=== PATIENT | female | born 1955 | race Caucasian/White ===

== ENCOUNTER → 2020-08-27 08:14 | Outpatient (CLI) | payer OTHER, SELFPAY ==
--- NOTE | ~2020-08-27 | MM_ITS ---
EXAMINATION: MM screening [facility] BI w poppy HISTORY: Screening mammogram TECHNIQUE: Craniocaudal and mediolateral oblique 3-D tomosynthesis images were obtained and synthetic 2-D images were generated. CAD analysis was submitted and interpreted. COMPARISON: 12/06/2018, 06/08/2017, 02/25/2016 bilateral digital screening mammogram examinations BREAST PARENCHYMAL COMPOSITION: The breasts are heterogeneously dense, which may obscure small masses . FINDINGS: There is no evidence of suspicious mass, calcification, or architectural distortion to sugg est malignancy in either breast. There has been no suspicious interval change. IMPRESSION: 1. No mammographic evidence of malignancy. 2. Recommend routine screening mammography in one year. BI-RADS Category 1: Negative Reviewed, dictated and finalized at location A. T SCIENTIST
== END ==
PROVIDERS: Visit Provider Nurse Practitioner Obstetrics & Gynecology
DX: Z12.31 Encounter for screening mammogram for malignant neoplasm of breast (principal)
CPT/HCPCS: 77063; 77067

== ENCOUNTER 2021-06-12 09:44 | Outpatient (CLI) | payer OTHER, SELFPAY ==
[2021-06-12 11:27] LABS: INR 0.9; Partial Thromboplastin Time 26.7 SECONDS (22.3-36.8); Prothrombin Time 11.9 Seconds (11.1-14.7)
[2021-06-12 11:41] LABS: Add Urine Microscopic? YES; Appearance Urine Clear (Clear); Bilirubin Urine Negative (Negative); Blood Urine 1+ (Negative); Color Urine Straw (Yellow); Glucose Urine UA Negative (Negative); Ketones Urine Negative (Negative); Leukocyte Esterase Ur Negative LEU/UL (Negative); Mucus Urine Rare /lpf; Nitrate Urine Negative (Negative); Protein Urine Negative (Negative); RBC Urine 0-2 /hpf (0-2); Specific Grav Ur 1.014 (1.001-1.035); Squamous Epithelial Cell Urine Rare /hpf (Few); Urobilinogen Urine Negative mg/dL (<2.0); WBC Urine 0-3 /hpf
[2021-06-12 12:09] LABS: Hemoglobin A1C 5.3 % (<5.7)
[2021-06-12 12:29] LABS: Urine Cotinine NEGATIVE
== END 2021-06-12 09:45 | disposition home or self-care (01) ==
LOC: ANHSURGERY 09:51
PROVIDERS: PCP Registered Nurse; Visit Provider Orthopaedic Surgery
DX: M17.11 Unilateral primary osteoarthritis, right knee (principal); Z01.818 Encounter for other preprocedural examination
CPT/HCPCS: 80307; 81001; 83036; 85610; 85730; 86850; 86900; 86901; 87081

== ENCOUNTER 2021-06-21 00:25 | Day surgery (SDC) | payer OTHER, SELFPAY ==
[2021-06-12 09:58] VITALS: BMI 38.1
--- NOTE | 2021-06-12 10:30 | PC.NURSE ---
Report to the Outpatient Waiting Room, entrance under the green pavilion located off [facility], at time __0600 on date _06/21/21 . OR Time: . - You and your visitor will be asked a series of questions to screen for COVID 19 for your protection. - A mask is required within the hospital. - Only one visitor is allowed at this time. Patient visitors will be guided where to wait when not with patient. Preoperative COVID Testing Requirements: No COVID Test needed if: (proof is required; if not received patient will have Rapid Test prior to entry) - Patient has received COVID Vaccine at least 14 days prior to procedure date or - Patient has positive COVID test result within last 90 days of surgery date. COVID Test needed if above criteria is not met If not COVID vaccinated a COVID test must be conducted within 72 hours of surgery and patient is asked to isolate self from time of testing until procedure. You will go to the [facility] for your COVID testing. The [facility] is located at the corner of [address] [facility]. You will only be called if COVID results are positive and your surgeon may reschedule your elective surgery date. Patients may have clear liquids (water, carbonated beverages, clear teas, apple juice) until 3 hours prior to surgery with a maximum of 20 ounces. - No food from midnight until time of surgery - Infants may have breast milk until 4 hours before surgery, infant formula 6 hours prior to surgery. - Children will be allowed to drink immediately following surgery. If applicable, please bring a bottle or sippy cup to assist with drinking. Juice, water, soda, and popsicles are readily available. For infants on formula, please bring formula the day of surgery. Pacifiers are allowed. Take the following medications with a SIP of water the morning of surgery: AMLODIPINE,LEVOTHYROXINE Medications to discontinue per physician ____ALL VITAMINS AND SUPPLEMENTS Date to take last dose 06/18/21 Please no make-up, nail german, hairspray, perfume, deodorant, or body powder the day of surgery. No jewelry (including any body piercings) or valuables the day of surgery, leave them at home. Please take a shower or bath the night before, or the morning of, surgery with an antibacterial soap. Wear comfortable, loose fitting clothing. Children are encouraged to wear pajamas. - Jewelry must be removed prior to entering the operating room. Rings and piercings that are not removed may be cut off. - The hospital will not accept responsibility for valuables. - Please leave all valuables, including medications, at home the day of surgery. If you are going home after surgery, a licensed team cdl driver must drive you home. - NO public transportation without another adult. - We recommend that an adult stay with you for 24 hours following discharge. - We also recommend that you do not drive, make important decision, drink alcoholic beverages, or take any drugs that were not prescribed by your health care provider for at least 24 hours after your discharge time. For Pediatric surgeries, we recommend two adults accompany the child home (only one inside the building at this time). Follow any additional instructions given to you from your surgeon. Telephone instructions given to ____PATIENT and asked if any additional questions and then verbalized understanding. Patient advised to call surgeon office or pre surgery nurse liaison [phone] if any additional questions.
[2021-06-12 10:48] VITALS: BP 133/77; PULSE 65; RESP 16; TEMP 36.7; O2SAT 97
[2021-06-21] VITALS (15 sets, daily range): BP systolic 104–141; BP diastolic 60–78; PULSE 65–79; RESP 10–20; TEMP 36.3–36.9; O2SAT 94–100; BMI 39.2
--- NOTE | ~2021-06-21 | XR_ITS ---
EXAMINATION: XR knee RT 2V DATE: 06/21/2021 10:16 INDICATION: Total right knee arthroplasty. Postop. TECHNIQUE: 2 views of right knee were obtained. COMPARISON: Right knee radiographs 03/16/2021 FINDINGS: There is a total right knee arthroplasty without patellar resurfacing in near-anatomic alig nment. No fracture. There is gas in the knee joint and soft tissues, consistent with recent surgery. IMPRESSION: 1. Total right knee arthroplasty in near-anatomic alignment. Reviewed, dictated and finalized at location A. BULANCE DISPATCHER
[2021-06-21] MEDS: ACETAMINOPHEN 500 MG TABLET 1000 MG PO (06:12)
[2021-06-21] MEDS: LACTATED RINGERS 1,000 ML 30 ML IV CONT ×2 (06:30→10:06)
--- NOTE | 2021-06-21 06:55 | WPDANESEPPF ---
Anes - Initial Pre Proc Eval Procedure: Operation Date: 06/21/21 07:30 Proposed Procedures p Right Total Knee Arthroplasty - Serafin Sullivan MD Date/Time: 06/21/21 06:55 Surgeon: Serafin Sullivan MD Pre Op Diagnosis: right knee DJD Patient Data Age: 65 Gender: F Height: 1.65 m Weight: 104.4 kg Last Vital Signs Temp 36.7 C 06/21/21 06:21 Pulse 75 06/21/21 06:21 Resp 16 06/21/21 06:21 BP 141/78 H 06/21/21 06:21 Pulse Ox 97 06/21/21 06:21 Allergies Allergy/AdvReac Type Severity Reaction Status Date / Time Sulfa (Sulfonamide Allergy Unknown Chest Pain Verified 06/21/21 06:08 Antibiotics) Home Medications Medication Instructions Recorded Confirmed Type amlodipine 5 mg tablet 5 mg PO DAILY 12/08/20 06/21/21 History atorvastatin 20 mg tablet 20 mg PO DAILY 12/08/20 06/21/21 History famotidine 20 mg tablet 20 mg PO BID 12/08/20 06/21/21 History levothyroxine 50 mcg capsule 50 mcg PO DAILY 12/08/20 06/21/21 History spironolactone 50 mg tablet 50 mg PO DAILY 12/08/20 06/21/21 History ascorbate calcium (vitamin C) 500 mg PO BID 12/09/20 06/21/21 History cholecalciferol (vitamin D3) 50 mg PO DAILY 12/09/20 06/21/21 History cinnamon bark 500 mg PO DAILY 12/09/20 06/21/21 History multivitamin 1 tablet PO DAILY 12/09/20 06/21/21 History chlorhexidine gluconate 4 % 1 applic TOPICAL ONCE #237 ml 03/21/21 06/12/21 Rx topical liquid calcium carbonate-vitamin D3 1 tablet PO DAILY 06/12/21 06/21/21 History [Calcium 500 + D (D3)] olmesartan 40 1 tablet PO DAILY 06/12/21 06/21/21 History mg-hydrochlorothiazide 25 mg tablet potassium 297 mg PO DAILY 06/12/21 06/21/21 History Patient hx anesthesia problems: none Family hx anesthesia problems: none Results Review: All pre-operative results and documents have been reviewed as part of the pre-operative evaluation. PMFSH Past Medical History Medical History (Updated 06/21/21 @ 06:57 by Jori David MD) HTN (hypertension) Hyperlipidemia Hypothyroidism Knee effusion, right Left shoulder pain Medial meniscus tear Obesity Right knee DJD Right knee pain Vision abnormalities Wears glasses Surgical History Surgical History History of section complicating 3 History of laparoscopic cholecystectomy Family History Family History Father Family history of Parkinson's disease Family history of heart disease in male family member before age 55 Mother Family history of lupus erythematosus Family history of heart disease in male family member before age 55 Acute myocardial infarction Sibling Family history of diabetes mellitus in first degree relative Other Cerebrovascular accident Diabetes mellitus Family history of cardiovascular disease Family history of gout Family history of malignant neoplasm High cholesterol Hypertension Leukemia Social History Social History (Updated 06/12/21 @ 09:11 by Mariana Lantigua MA) Smoking status: Never smoker Additional smoking assessment comments: DENIES ANY FORM OF TOBACCO USE Alcohol intake: never Substance use: never Substance use type: does not use Living arrangements: with family Gender identity (if verbalized by the patient): Female Spiritual care concerns: No Anes - Eval Final PreProcedure Day of Procedure 06/21/21 06:55 Patient weight: obese Heart: regular rate and rhythm Lungs: clear to auscultation and normal air movement Airway: Mallampati scale class II Neurological: alert and oriented Last oral intake: >/= 8 hours ASA classification: III Emergent: no Anesthetic plan: proceed Anesthesia type and monitoring: general LMA Results Review: All pre-operative results and documents have been reviewed as part of the pre-operative evaluation. Informed Consent: The patient's anesthetic plan and its attendant risks
[2021-06-21] MEDS: TRANEXAMIC ACID 1,000MG/ISO100 1,000 MG/100 ML BAG 200 MG IVPB (07:00)
--- NOTE | 2021-06-21 07:15 | WPDHPUPDATE1 ---
History and Physical Update Update Date/Time: 06/21/21 07:15 History and Physical has been reviewed, including an updated exam of the patient. There are NO changes in the patient's condition. Risks, benefits, and alternatives have been discussed and questions answered. Patient agrees to proceed with procedure.
[2021-06-21] MEDS: ceFAZolin 2 GM/D5W 50 ML 2 GM/50 ML BAG IVPB ×2 (07:41→16:06)
--- NOTE | 2021-06-21 07:44 | WPDANESPNB ---
Anes - Peripheral Nerve Block Date/Time: 06/21/21 07:44 I have discussed with the patient/family/POA the placement of a peripheral nerve block for post-operative pain management, including associated risks, benefits, complications, and side effects. Alternative methods of post-operative analgesia were detailed. Questions were solicited and answers provided to the satisfaction of the patient/family/POA. Time-Out: A pre-procedural Time-Out was completed immediately before starting the procedure and confirmed: Patient Identification, Site, Procedure, Patient Position and the Availability of Requisite Equipment. Clinical Indications: Acute post-operative pain management requested by the operative surgeon. Nerve Block Insertion Note Anes-nerve block: adductor canal right Patient position: supine Skin prep: chlorhexidine Needle: 22 gauge, stimulating, insulated echogenic needle. Needle length: 80 mm Technique: ultrasound Technique comment: in plane Injectate: bupivacaine 0.25% with epi 5 mcg/ml (30cc) Observations: tolerated well Complications: none Procedure start time:: 730 Procedure end time:: 735
[2021-06-21] MEDS: GENTAMICIN BONE CEMENT REFOBACIN 1 EACH TOPICAL (08:21)
[2021-06-21] MEDS: TRANEXAMIC ACID 1,000 MG/10 ML AMPUL 1000 MG IV PUSH (09:08)
--- NOTE | 2021-06-21 10:13 | P.OP_ITS ---
Procedure Note - Detailed Date of Procedure 06/21/21 Pre-op Diagnosis right knee DJD Post-op Diagnosis same Procedure Performed R TKA Surgeon Serafin Sullivan MD Anesthesia general Description of Procedure THE RIGHT KNEE WAS PREPPED AND DRAPED IN THE STERILE FASHION. THERE WAS A 10 DEGREE FLEXION CONTRACTURE. A MIDLINE SKIN INCISION WAS MADE. A MEDIAL PARAPATELLAR ARTHROTOMY WAS MADE. THE PATELLA WAS EVERTED. THERE WAS TRICOMPARTMENT DJD. THERE WAS MINIMAL PATELLA DJD. AN INTRAMEDULLARY AMIRA WAS PLACED IN THE FEMUR. A DISTAL FEMORAL CUT WAS MADE IN 5 DEGREES OF VALGUS REMOVING APPROXIMATELY 9 MM OF BONE FROM THE DISTAL FEMUR. THE FEMUR WAS SIZED TO 65. A 65 FEMORAL CUTTING BLOCK WAS PLACED IN 3 DEGREES OF EXTERNAL ROTATION AND IN ALIGNMENT WITH CAMILA'S LINE AND THE TRANSEPICONDYLAR AXIS. ANTERIOR POSTERIOR AND CHAMFER CUTS WERE MADE. THE CUTS WERE EXCELLENT. NEXT AN INTRAMEDULLARY CUTTING GUIDE WAS PLACED IN THE TIBIA. A TRANS TIBIAL CUT WAS MADE ALONG THE LONG AXIS OF THE TIBIA. APPROXIMATELY 10 MM OF BONE WAS REMOVED FROM THE HIGH SIDE OF THE TIBIA. THE TIBIA WAS THEN PLANED TO A SMOOTH SURFACE. POSTERIOR FEMORAL OSTEOPHYTES WERE REMOVED FROM THE FEMORAL CONDYLES. A 71 TIBIAL TRIAL WAS PLACED IN ALIGNMENT WITH THE 1/3 MEDIAL ASPECT OF THE TIBIAL TUBERCLE. THEN A 65 FEMORAL TRIAL COMPONENT WAS PLACED. BOTH HAD EXCELLENT FITS. EVENTUALLY A 10 MM POLYETHYLENE TRIAL COMPONENT WAS PLACED. THE KNEE WAS TAKEN THROUGH A RANGE OF MOTION. THE KNEE CAME OUT TO FULL EXTENSION. THERE WAS NO ABNORMAL TILT TO THE PATELLA. THERE WAS GOOD A/P AND VARUS/VALGUS STABILITY. THERE WAS NO EXCESSIVE ROLL BACK WITH FLEXION. THE TRIAL COMPONENTS WERE REMOVED. THEN A 65 FEMORAL COMPONENT AND 71 TIBIAL COMPONENT WITH A 10 POLYETHYLENE COMPONENT WERE CEMENTED INTO PLACE. ONCE THE CEMENT WAS HARD THE KNEE WAS TAKEN THROUGH A ROM AGAIN AND FOUND TO BE STABLE WITH NO PATELLA TILT NO EXCESSIVE ROLL BACK WITH FLEXION AND GOOD STABILITY WITH COMPLETE AND FULL EXTENSION. THE KNEE WAS IRRIGATED WITH STERILE BETADINE AND WATER FOR ABOUT 3 MINUTES. THE BLEEDERS WERE CAUTERIZED. THE ARTHROTOMY WAS REPAIRED WITH NUMBER 1 VICRYL. THE SUB CUTANEOUS LAYER WITH 2-0 VICRYL AND THE SKIN WITH A 2-0 QUIL AND DERMABOND. THE WOUND WAS WASHED AND A STERILE DRESSING WAS APPLIED. EMILY PIZARRO WAS EXTUBATED. Estimated Blood Loss -150.0 Pathology none sent Complications No immediate complications Condition stable Disposition PACU
[2021-06-21] MEDS: fentaNYL CITRATE INJ (*CRX) 100 MCG/2 ML VIAL 25 MCG IV PUSH ×6 (10:16→10:52)
--- NOTE | 2021-06-21 11:05 | SUR.PHASEI ---
[id number] sbar faxed floor notified
--- NOTE | 2021-06-21 12:10 | ADMGEN ---
This patient, Adina Sidhu, was admitted to 2 Medical Room 242-01. Patient/family oriented to hospital policies and general routines including ID bracelet, bed and alarms, visiting hours, pain management, procedures, bathroom and other care routines, personal items, smoking policy, room service/diet, and visiting hours. Information on how to activate the Rapid Response Team has been discussed. Patient/Family are encouraged to report perceived risks to care and to ask questions if they do not understand what they are told or what they should do.
[2021-06-21] MEDS: oxyCODONE/ACETAMINOPHEN (*CRX) 5-325 MG TABLET 1 TABLET PO ×2 (12:54→20:56)
[2021-06-21] MEDS: SODIUM CHLORIDE 0.9% IV 1,000 ML 125 ML IV CONT (12:54)
[2021-06-21] MEDS: ASCORBIC ACID 500 MG TABLET PO (16:06)
[2021-06-21] MEDS: DOCUSATE SODIUM 100 MG CAPSULE PO (16:06)
[2021-06-21] MEDS: FAMOTIDINE 20 MG TABLET PO (20:56)
[2021-06-22] MEDS: ceFAZolin 2 GM/D5W 50 ML 2 GM/50 ML BAG IVPB ×2 (00:30→09:00)
[2021-06-22 01:26] VITALS: BP 122/66; PULSE 81; RESP 20; TEMP 37.4; O2SAT 98
[2021-06-22 05:26] VITALS: BP 114/59; PULSE 79; RESP 18; TEMP 37.1; O2SAT 97
[2021-06-22] MEDS: LEVOTHYROXINE SODIUM 50 MCG TABLET PO (06:24)
[2021-06-22 06:32] LABS: Basophils Percent Auto 0.1 % (0.2-1.2); Hematocrit 34.8 % (37.0-47.0); Immature Granulocyte Absolute 0.02 K/mm3 (0.00-0.031); Immature Granulocyte Percent A 0.2 % (0-0.5); Lymphocytes Absolute Auto 0.96 K/mm3 (0.9-3.2); Lymphocytes Percent Auto 11.6 % (18.3-44.2); Mean Corpuscular HGB Conc 34.5 g/dl (32-36); Mean Corpuscular Hemoglobin 31.4 pg (26-34); Mean Corpuscular Volume 91.1 fl (80-100); Mean Platelet Volume 10.3 fl (7.4-10.4); Neutrophils Absolute Auto 6.3 K/mm3 (1.3-6.7); Neutrophils Percent Auto 76.1 % (45.5-73.1); Platelet Count Result 177 k/mm3 (150-375); Red Blood Count 3.82 M/mm3 (4.2-5.4); Red Cell Distribution Width 13.3 % (11.5-14.5); White Blood Count 8.3 K/mm3 (4.5-10.0)
[2021-06-22 07:00] LABS: Anion Gap 7 mmol/L (8-16); Blood Urea Nitrogen 17 mg/dL (7-17); Calcium 8.1 mg/dL (8.4-10.2); Carbon Dioxide 27 mmol/L (22-30); Chloride 100 mmol/L (98-107); Estimated CRCL calculation 98 ml/min; Estimated Glomerular Filt Rate > 60; Glucose 119 mg/dL (65-110); Potassium 3.6 mmol/L (3.4-5.0); Sodium 134 mmol/L (137-145)
--- NOTE | 2021-06-22 07:54 | P.PNAN_ITS ---
Anes - Prog Note Post-Op Date/Time: 06/22/21 07:54 Cardiovascular status: normal Respiratory status: normal Airway patency: baseline Mental status: baseline Post-Op hydration status: normal Vital Signs: Last Vital Signs Temp 37.4 C 06/22/21 01:26 Pulse 81 06/22/21 01:26 Resp 20 06/22/21 01:26 BP 122/66 06/22/21 01:26 Pulse Ox 98 06/22/21 01:26 Pain Score (VAS): 4 I/O: Intake & Output 06/21/21 06/21/21 06/22/21 15:59 23:59 07:59 Intake Total 7036 000 3287 Balance 8005 199 7508 Laboratory Tests 06/22/21 05:24 06/22/21 05:24 06/22/21 06/22/21 05:24 05:24 WBC 8.3 RBC 3.82 L Hgb 12.0 Hct 34.8 L MCV 91.1 MCH 31.4 MCHC 34.5 RDW 13.3 Plt Count 177 MPV 10.3 Immature Gran % (Auto) 0.2 Neut % (Auto) 76.1 H Lymph % (Auto) 11.6 L [place] % (Auto) 12.0 H Eos % (Auto) 0.0 Baso % (Auto) 0.1 L Lymph # (Auto) 0.96 [place] # (Auto) 1.0 H Eos # (Auto) 0.0 Baso # (Auto) 0.0 Abs Immat Gran (auto) 0.02 Absolute Neuts (auto) 6.3 Absolute Nucleated RBC 0.0 Nucleated RBC % 0.0 Sodium 134 L Potassium 3.6 Chloride 100 Carbon Dioxide 27 Anion Gap 7 L BUN 17 Creatinine 0.60 L Estim Creat Clear Calc 98 Estimated GFR > 60 Glucose 119 H Calcium 8.1 L Post-procedural complaints: none Patient Feedback: Patient satisfied with anesthetic care.
[2021-06-22 08:54] VITALS: BP 132/62; PULSE 77; RESP 16; TEMP 36.3; O2SAT 98
[2021-06-22] MEDS: ASCORBIC ACID 500 MG TABLET PO ×2 (09:00→17:12)
[2021-06-22] MEDS: ONDANSETRON INJ 4 MG/2 ML VIAL IV PUSH (09:00)
[2021-06-22] MEDS: amLODIPine BESYLATE 5 MG TABLET PO (09:00)
[2021-06-22] MEDS: SPIRONOLACTONE 50 MG TABLET PO (09:01)
[2021-06-22] MEDS: FAMOTIDINE 20 MG TABLET PO (09:01)
[2021-06-22] MEDS: ATORVASTATIN 20 MG TABLET PO (09:01)
[2021-06-22] MEDS: OLMESARTAN MEDOXOMIL 20 MG TABLET 40 MG PO (09:01)
[2021-06-22] MEDS: DOCUSATE SODIUM 100 MG CAPSULE PO ×2 (09:01→17:12)
[2021-06-22] MEDS: ASPIRIN 325 MG ENTERIC TABLET 650 MG PO (09:01)
[2021-06-22] MEDS: MULTIVITAMINS THERAPEUTIC TAB (*BKC) 1 TABLET PO (09:02)
[2021-06-22] MEDS: hydroCHLOROthiazide 25 MG TABLET PO (09:02)
--- NOTE | 2021-06-22 09:17 | PM.PNORT ---
Progress Note: A&P Assessment and Plan (1) S/P total knee arthroplasty: Qualifiers: Laterality: right Qualified Code(s): Z96.651 - Presence of right artificial knee joint Code(s): Z96.659 - Presence of unspecified artificial knee joint Status: Acute Assessment and Plan: POD #1: Right TKA Continue PT/OT. WBAT. Walker. Continue pain control. Ice. DVT prophylaxis. SCDs. Incentive spirometry. Monitor dressing. Change prior to discharge. Dispo: Home with Home Health pending progress with PT/OT Additional Plan Reviewed case and postoperative assessment with attending MD, Dr. Sullivan. Subjective Subjective Date/Time Seen: 06/22/21 09:17 Post Op day: 1 Principal diagnosis: Right Knee DJD Interval history: POD #1: Right TKA Complaints of pain. Mild nausea. Working well with PT/OT this AM. Review of Systems Review of Systems: All systems reviewed & are unremarkable except as noted in HPI and below Constitutional: Constitutional: Denies fever(s) and Denies headache(s) ENT: Denies headache(s) Cardiovascular: Cardiovascular: Denies chest pain, Denies diaphoresis, Denies palpitations and Denies dyspnea Respiratory: Respiratory: Denies dyspnea Gastrointestinal: Gastrointestinal: Denies abdominal pain, Denies constipation, Reports nausea and Denies vomiting Genitourinary: Genitourinary: Reports nocturia and Denies dysuria Musculoskeletal: Musculoskeletal: Reports arthralgias (Right Knee ) and Reports joint swelling (Right Knee ) Neurologic: Denies headache(s) Endocrine: Endocrine: Denies palpitations Exam Const: General: comfortable and no acute distress Resp: Effort & Inspection: normal respiratory effort Cardio: Rate: regular rate Rhythm: regular rhythm GI: GI Palp: Yes Soft to palpation, No Tenderness to palpation present (GI) and No Guarding due to palpation present (GI) Skin: Wounds: wounds noted (Right TKA, dressing c/d/i. ) Other: Incision c/d/i. No surrounding redness/warmth. No hematoma. Mild ecchymosis. No wound dehiscence Neuro: Cognition (Neuro): normal cognition Other: NV intact aside from block. Moves toes. Sensation intact to light touch. +ankle dorsiflexion/plantarflexion. Extrem: Right lower extremity: knee Details: tenderness (diffuse, mild ), swelling (diffuse, mild ) and abnormal ROM (limited due to recent surgical intervention, nerve block ), lower leg (Negative Memo's Sign. ) Details: normal to inspection; no tenderness, ankle (+ankle dorsiflexion/plantarflexion) Details: normal to inspection, no edema and normal ROM; no tenderness and no swelling and foot (2+ pedal pulses. Moves toes. Sensation intact. ) Details: normal capillary refill and vascular exam Details: dorsalis pedis pulse present Left lower extremity: normal to inspection Psych: Mental Status: mental status grossly normal Objective Data Vital Signs Vital Signs: Vital Signs - 24 hr 06/21/21 10:10 06/21/21 10:25 06/21/21 10:40 Temperature 36.9 C Pulse Rate 72 69 69 Respiratory Rate 14 10 L 10 L Blood Pressure 112/68 126/64 123/63 Pulse Oximetry 100 100 100 06/21/21 10:54 06/21/21 11:10 06/21/21 11:25 Temperature Pulse Rate 77 75 79 Respiratory Rate 12 14 12 Blood Pressure 127/75 129/65 Pulse Oximetry 100 98 98 06/21/21 12:00 06/21/21 12:15 06/21/21 12:45 Temperature 36.4 C 36.8 C 36.6 C Pulse Rate 74 76 77 Respiratory Rate 14 14 16 Blood Pressure 115/67 127/64 112/70 Pulse Oximetry 99 98 94 06/21/21 13:00 06/21/21 13:45 06/21/21 17:26 Temperature 36.3 C L 36.3 C L Pulse Rate 72 76 Respiratory Rate 16 16 Blood Pressure 104/60 112/63 Pulse Oximetry 94 99 98 06/21/21 18:27 06/21/21 21:26 06/22/21 01:26 Temperature 36.3 C L 37.4 C Pulse Rate 65 81 Respiratory Rate 20 20 Blood Pressure 121/65 122/66 Pulse Oximetry 98 98 98 06/22/21 05:26 06/22/21 08:54 Temperature 37.1 C 36.3 C L Pulse Rate 79 77 Respiratory Rate 18 16 Blood Pre
[2021-06-22 09:21] VITALS: O2SAT 98
--- NOTE | 2021-06-22 15:57 | PM.DS ---
DS: Admitting Diagnosis Discharge Date 06/22/21 Admitting Diagnosis Right knee DJD DS: Discharge Diagnosis Discharge Diagnosis (1) S/P total knee arthroplasty: Qualifiers: Laterality: right Qualified Code(s): Z96.651 - Presence of right artificial knee joint Code(s): Z96.659 - Presence of unspecified artificial knee joint Status: Acute Assessment and Plan: POD #1: Right TKA Continue PT/OT. WBAT. Walker. Continue pain control. Ice. DVT prophylaxis. SCDs. Incentive spirometry. Monitor dressing. Change prior to discharge. Dispo: Home with Home Health pending progress with PT/OT DS: Summary Hospital Course Reason for hospitalization: right total knee arthroplasty Hospital Course: 65-year-old female admitted status post right total knee arthroplasty for postoperative medical management, pain control and mobilization with physical and occupational therapy. Patient progressed very well on postop day 1. Her pain was well controlled with current pain medication regimen. She did very well with PT and OT and was even able to ambulate stairs. She was able to perform all activities that she would need in order to be successful in her home. She was cleared to be discharged home with home health. She will follow up in the outpatient orthopedic clinic in approximately 3 weeks for re-evaluation and repeat radiographs. Discharge instructions reviewed with patient in depth. Status at Discharge Functional status at discharge: uses cane/walker Overall status at discharge: patient is progressing back to baseline Time Spent with Patient Time attestation: Total time spent providing and/or coordinating discharge services: Time spent: Less than 30 minutes Exam Const: General: comfortable and no acute distress Resp: Effort & Inspection: normal respiratory effort Cardio: Rate: regular rate Rhythm: regular rhythm Skin: Wounds: wounds noted (Right TKA, dressing c/d/i. ) Other: Incision c/d/i. No surrounding redness/warmth. No hematoma. Mild ecchymosis. No wound dehiscence Neuro: Cognition (Neuro): normal cognition Other: NV intact aside from block. Moves toes. Sensation intact to light touch. +ankle dorsiflexion/plantarflexion. Extrem: Right lower extremity: knee Details: tenderness (diffuse, mild ), swelling (diffuse, mild ) and abnormal ROM (limited due to recent surgical intervention, nerve block ), lower leg (Negative Memo's Sign. ) Details: normal to inspection; no tenderness, ankle (+ankle dorsiflexion/plantarflexion) Details: normal to inspection, no edema and normal ROM; no tenderness and no swelling and foot (2+ pedal pulses. Moves toes. Sensation intact. ) Details: normal capillary refill and vascular exam Details: dorsalis pedis pulse present Left lower extremity: normal to inspection Psych: Mental Status: mental status grossly normal DS: Data Data Completed and Pending Labs on day of discharge: Labs from last 24 hours 06/22/21 06/22/21 05:24 05:24 WBC 8.3 RBC 3.82 L Hgb 12.0 Hct 34.8 L MCV 91.1 MCH 31.4 MCHC 34.5 RDW 13.3 Plt Count 177 MPV 10.3 Immature Gran % (Auto) 0.2 Neut % (Auto) 76.1 H Lymph % (Auto) 11.6 L [place] % (Auto) 12.0 H Eos % (Auto) 0.0 Baso % (Auto) 0.1 L Lymph # (Auto) 0.96 [place] # (Auto) 1.0 H Eos # (Auto) 0.0 Baso # (Auto) 0.0 Abs Immat Gran (auto) 0.02 Absolute Neuts (auto) 6.3 Absolute Nucleated RBC 0.0 Nucleated RBC % 0.0 Sodium 134 L Potassium 3.6 Chloride 100 Carbon Dioxide 27 Anion Gap 7 L BUN 17 Creatinine 0.60 L Estim Creat Clear Calc 98 Estimated GFR > 60 Glucose 119 H Calcium 8.1 L Discharge Plan Discharge Patient Disposition: Home Health Service Discharge Instructions: Post Op Total Knee Replacement Instructions Dr. Serafin Sullivan [phone] ? Your dressing will be changed prior to your discharge. You will be sent home with one additional dressing t
== END 2021-06-22 18:36 | disposition home health service (06) ==
LOC: ANHSURGERY 05:58 → ANH2MED 11:45
PROVIDERS: PCP Registered Nurse; Visit Provider Orthopaedic Surgery
PROC: (CPT 27447; principal; 2021-06-21 07:30)
DX: M17.11 Unilateral primary osteoarthritis, right knee (principal); G89.18 Other acute postprocedural pain; I10 Essential (primary) hypertension; E78.5 Hyperlipidemia, unspecified; E03.9 Hypothyroidism, unspecified; E66.9 Obesity, unspecified; Z68.39 Body mass index [BMI] 39.0-39.9, adult
CPT/HCPCS: 27447; 64447; 36415; 73560; 80048; 80307; 81001; 83036; 85025; 85610; 85730; 86850; 86900; 86901; 87081; 97110; 97116; 97161; 97165; 97530; 97535; A9270; C1713; C1776; J0171; J0690; J2250; J2270; J2405; J2704; J2795; J3010; J7030; J7120

== ENCOUNTER → 2022-02-17 07:59 | Outpatient (CLI) | payer OTHER, MEDICARE, SELFPAY ==
--- NOTE | ~2022-02-17 | MM_ITS ---
EXAMINATION: MM screening [facility] BI w poppy HISTORY: Screening mammogram TECHNIQUE: Craniocaudal and mediolateral oblique 3-D tomosynthesis images were obtained and synthetic 2-D images were generated. CAD analysis was submitted and interpreted. COMPARISON: 08/27/2020, 12/06/2018 BREAST PARENCHYMAL COMPOSITION: The breasts are heterogeneously dense, which may obscure small masses . FINDINGS: There is no suspicious mass, calcification, or architectural distortion to suggest malignan cy in either breast. There has been no suspicious interval change. IMPRESSION: 1. No mammographic evidence of malignancy. 2. Recommend routine screening mammography in one year. BI-RADS Category 1: Negative Reviewed, dictated and finalized at location A.
== END ==
PROVIDERS: PCP Nurse Practitioner Obstetrics & Gynecology; Visit Provider Nurse Practitioner Obstetrics & Gynecology
DX: Z12.31 Encounter for screening mammogram for malignant neoplasm of breast (principal)
CPT/HCPCS: 77063; 77067

== ENCOUNTER → 2022-05-25 10:19 | Outpatient (CLI) | payer OTHER, MEDICARE, SELFPAY ==
--- NOTE | ~2022-05-25 | DEXA_ITS ---
Bone Density Report Name: JANNETH WEST Age: 66 Sex: Female Ethnicity: White Date of : 1955 Indication: postmenopausal; screening for osteoporosis; height loss; hysterectomy; Referring Provider: Melodie, Jolene Study: Bone densitometry was performed. Exam Date: May 25, 2022 Accession number: [id number] Bone Density: Region BMD T-score Z-score Classification AP Spine (L1-L4) 1.057 0.1 1.9 Normal Femoral Neck (Left) 0.817 -0.3 1.3 Normal Total Hip (Left) 1.045 0.8 2.1 Normal Femoral Neck (Right) 0.809 -0.4 1.2 Normal Total Hip (Right) 0.983 0.3 1.6 Normal Total Hip Mean 1.014 0.6 1.9 Normal World Health Organization criteria for BMD impression classify patients as: Normal (T-score at or above -1.0), Osteopenia (T-score between -1.0 and -2.5), or Osteoporosis (T-score at or below -2.5). 10-year Fracture Risk: FRAX not reported because: All T-scores for Spine Total, Hip Total, Femoral Neck at or above -1.0 Previous Exams: Region Exam Age BMD T-score BMD Change BMD Change Date g/cm2 vs Baseline vs Previous AP Spine(L1-L4) 05/25/2022 66 1.057 0.1 -0.132 -0.018 06/08/2017 61 1.075 0.3 -0.114 -0.114 10/18/2008 53 1.189 1.3 Total Hip(Left) 05/25/2022 66 1.045 0.8 -0.049 -0.006 06/08/2017 61 1.051 0.9 -0.042 -0.042 10/18/2008 53 1.094 1.2 Total Hip(Right) 05/25/2022 66 0.983 0.3 -0.127 -0.080* 06/08/2017 61 1.063 1.0 -0.047 -0.047 10/18/2008 53 1.111 1.4 *Denotes significance at 95% confidence level, LSC for AP Spine = 0.022 g/cm2, LSC for Total Hip = 0.027 g/cm2 Clinical Information Provided by Patient: Has used the following medications: Vitamin D, Calcium, MTV, LEVOTHYROXINE Has the following medical conditions: Hysterectomy Patient maximum height was 67.0 Menopause Age: 35 Drinks caffeinated beverages Onset of menses at age 13 Number of children 3 Impression: The patient has normal bone mass. The BMD for the Total Hip(Right) decreased, changing by -0.080 since the last DXA exam. Discussion: BONE DENSITY IS ABOVE THE MINIMUM DESIRABLE LEVEL AT ALL SKELETAL SITES TESTED. This patient?s bone mineral density is above the minimum desirable level (T-score -1.0 or better) at all sites measured. The patient should follow a healthful lifestyle (good nutrition with adequate calci
== END ==
PROVIDERS: PCP Registered Nurse; Visit Provider Registered Nurse
DX: Z78.0 Asymptomatic menopausal state (principal)
CPT/HCPCS: 77080

== ENCOUNTER 2023-04-04 14:20 | Outpatient (CLI) | payer MEDICARE, OTHER, SELFPAY ==
--- NOTE | 2023-04-05 06:56 | WPDPFTINT ---
PFT Procedure Performed PFT Procedure Performed Spirometry with Pre/Post Bronchodilator Plethysmography (Lung Vol) Diffusing Cap (DLCO) Flow Vol Loop PFT Interpretation This is a pulmonary function test with pre and post-bronchodilator spirometry, plethysmography and diffusing capacity. The test was performed and results interpreted in accordance with the 2019 and 2005 ATS/ERS Task Force guidelines respectively using the Global Lung Function Initiative-2012 reference equations. Patient demonstrated good effort and cooperation. Reproducibility criteria were met. The quality of the pre bronchodilator spirometry maneuver was Grade A and post bronchodilator spirometry maneuver was Grade A. Findings: Spirometry: The contour the inspiratory and expiratory flow tracing are normal. The pre bronchodilator FVC is 2.81 L, 91% predicted. The pre bronchodilator FEV1 is 2.05 L, 85% predicted. The pre bronchodilator FEV1: FVC ratio 73%. The post bronchodilator FVC is 3.14 L, representing a 12% increase. The post bronchodilator FEV1 is 2.47 L, representing a 21% increase. The post bronchodilator FEV1: FVC ratio is 79%. Plethysmography: The total lung capacity is 5.24 L, 101% predicted. The functional residual capacity is 2.71 L, 92% predicted. The residual volume is 2.12 L, 98% predicted. Diffusion capacity: The diffusing capacity unadjusted for hemoglobin and carboxyhemoglobin is 18.0, 84% predicted. The diffusing capacity adjusted for alveolar volume is 4.36, 101% predicted. Impression: The spirometry is normal without evidence of an obstructive abnormality. There is significant improvement after inhaling a single dose of albuterol. The lung volumes are normal. The diffusing capacity is normal. There are no prior studies for comparison
== END 2023-04-04 14:21 | disposition home or self-care (01) ==
LOC: ANHPFT 14:20
PROVIDERS: PCP Registered Nurse; Visit Provider Registered Nurse
DX: R06.02 Shortness of breath (principal)
CPT/HCPCS: 94060; 94726; 94729

== ENCOUNTER 2023-05-25 07:53 | Outpatient (CLI) | payer MEDICARE, OTHER, SELFPAY ==
--- NOTE | ~2023-05-25 | MM_ITS ---
EXAMINATION: MM screening derrick BI w poppy HISTORY: Screening TECHNIQUE: Craniocaudal and mediolateral oblique 3-D tomosynthesis images were obtained and synthetic 2-D images were generated. CAD analysis was submitted and interpreted. COMPARISON: Comparison to multiple prior studies sequentially, with oldest reviewed study dated 01/2015. BREAST PARENCHYMAL COMPOSITION: The breasts are extremely dense, which lowers the sensitivity of mamm ography FINDINGS: There is no evidence of suspicious mass, calcification, or architectural distortion to sugg est malignancy in either breast. There has been no suspicious interval change. IMPRESSION: 1. No mammographic evidence of malignancy. 2. Recommend routine screening mammography in one year. BI-RADS Category 1: Negative Reviewed, dictated and finalized at location A.
== END 2023-05-25 07:54 | disposition home or self-care (01) ==
PROVIDERS: PCP Registered Nurse; Visit Provider Nurse Practitioner Obstetrics & Gynecology
DX: Z12.31 Encounter for screening mammogram for malignant neoplasm of breast (principal)
CPT/HCPCS: 77063; 77067

== ENCOUNTER 2024-12-29 07:51 | Outpatient (CLI) | payer MEDICARE, OTHER, SELFPAY ==
--- NOTE | ~2024-12-29 | DEXA_ITS ---
Bone Density Report Name: JANNETH WEST Age: 69 Sex: Female Ethnicity: White Date of : 1955 Indication: postmenopausal; screening for osteoporosis; height loss; hysterectomy; Referring Provider: IAIN, DANIELA Study: Bone densitometry was performed. Exam Date: December 29, 2024 Accession number: [id number] Bone Density: Region BMD T-score Z-score Classification AP Spine(L1-L4) 1.035 -0.1 1.9 Normal Femoral Neck (Left) 0.813 -0.3 1.4 Normal Total Hip (Left) 0.993 0.4 1.8 Normal Femoral Neck (Right) 0.845 0.0 1.7 Normal Total Hip (Right) 1.003 0.5 1.9 Normal Total Hip Mean 0.998 0.5 1.9 Normal World Health Organization criteria for BMD impression classify patients as: Normal (T-score at or above -1.0), Osteopenia (T-score between -1.0 and -2.5), or Osteoporosis (T-score at or below -2.5). 10-year Fracture Risk: FRAX not reported because: All T-scores for Spine Total, Hip Total, Femoral Neck at or above -1.0 Clinical Information Provided by Patient: Has used the following medications: Vitamin D, Calcium Has the following medical conditions: Hysterectomy Patient maximum height was 66 Menopause Age: 35 No regular weight bearing exercise Onset of menses at age 13 Number of children 3 Impression: The patient has normal bone mass. Discussion: BONE DENSITY IS ABOVE THE MINIMUM DESIRABLE LEVEL AT ALL SKELETAL SITES TESTED. This patient?s bone mineral density is above the minimum desirable level (T-score -1.0 or better) at all sites measured. The patient should follow a healthful lifestyle (good nutrition with adequate calcium and vitamin D, and appropriate weight-bearing exercise). Follow-Up: Consider repeating this study in 5 years or sooner if there is some new clinical indication. Reported by: BERENICE on 12/29/2024 8:30:00 AM. Reviewed, dictated and finalized at location A.
--- OUTSIDE RECORDS SUMMARY | 2024-12-29 07:56 | XMS_ITS | Clinical Summary ---
Author Organization [facility] Address [address] [place] [address] Care Team Providers Care Joy Operator Name Role Phone Jolene Sewell NISHA Primary Care Provider Allergies Active Allergy Reactions Criticality Noted Date Comments Sulfa Antibiotics Chest pressure 07/06/2019 Trimethoprim Unknown 07/11/2020 Medications multi vitamin/minerals tablet Take 1 tablet by mouth daily. Active Calcium Carb-Cholecalcifer ol (CALCIUM 1000 + D) 1000-800 MG-UNIT Tab daily. Active Cinnamon 500 MG capsule daily. Active Ascorbic Acid (VITAMIN C) 100 MG Chew Tab Vitamin C Active AEROCHAMBER MV MISC, DME,Indications:Hernandez bacute cough Use with albuterol inhaler. 1 Device 02/28/20 23 Active valACYclovir (VALTREX) 500 MG tablet Take 1 tablet (500 mg total) by mouth daily. DIRECTED 02/27/20 23 Active conjugated estrogens (PREMARIN) 0.625 MG/GM vaginal cream insert (1G) by vaginal route nightly x 14 nights; then use twice weekly for maintenance. Active Olmesartan Medoxomil-HCTZ 40-25 MG TabIndications:Imani desean hypertension Take 1 tablet by mouth daily. 90 tablet 3 12/23/19 24 Active atorvastatin (LIPITOR) 40 MG tabletIndications: Mixed hyperlipidemia Take 1 tablet (40 mg total) by mouth nightly at bedtime. 90 tablet 3 12/23/19 24 Active levothyroxine (SYNTHROID) 50 MCG tabletIndications: Acquired hypothyroidism Take 1 tablet (50 mcg total) by mouth daily. 90 tablet 3 12/23/19 Active spironolactone (ALDACTONE) 50 MG tabletIndications: Secondary hypertension Take 1 tablet (50 mg total) by mouth every morning. 90 tablet 12/23/19 Active potassium chloride CR (K-TAB) 20 MEQ tabletIndications: Hypokalemia Take 2 tabs by mouth twice daily 360 tablet 3 12/23/19 Active amoxicillin (AMOXIL) 500 MG capsuleIndications :Need for antibiotic prophylaxis for dental procedure Take 4 caps one hour prior to procedure 4 capsule 1 05/22/20 Active Additional Information Patient not taking.Reported on 10/29/2024 Boswellia-Glucosam ine-Vit D (OSTEO BI-FLEX ONE PER DAY OR) Active Coenzyme Q10 (COQ10 OR) Active omeprazole (PRILOSEC) 40 MG capsule Take 1 capsule (40 mg total) by mouth 2 (two) times daily. 06/09/20 Active Active Problems Problem Noted Date Diagnosed Date Costochondral pain 02/27/2023 BMI 37.0-37.9, adult 07/11/2020 Hypertension 07/06/2019 Mixed hyperlipidemia 07/06/2019 Thyroid nodule 07/06/2019 Gastroesophageal reflux disease without esophagi tis 07/06/2019 Acquired hypothyroidism 07/06/2019 Resolved Problems Problem Noted Date Diagnosed Date Resolved Date Subacute cough 02/27/2023 11/08/2023 Encounters Date Type Department Care Team Description 11/24/2024 Results Follow-Up [facility] Family & Internal Medicine [address] [address] Jolene Sewell APNP THYROXINE, FREE (FT4), THYROID STIM HORMONE TSH, URINALYSIS, Additional followed-up results: 3 11/20/2024 7:20 AM CDT Laboratory Only [facility] & Internal [address] [address] Jolene Sewell APNP 11/20/2024 Travel 10/30/2024 Telephone [facility] Family & Internal [address] [address] Jolene Sewell APNP Information 10/29/2024 1:20 PM CDT Office Visit [facility] Family & Internal Medicine [address] [address] Jolene Sewell, NISHA Hypertension 10/29/2024 Travel from Last 3 Months Immunizations Immunization Administration Dates Next Due Arexvy Respiratory Syncytial Virus (RSV, adjuvanted) 0.5 mL, PF 08/24/2023 FLUAD (IIV, Trivalent, 0.5 ML Pre-filled Syringe ) 06/06/2024 Fluzone 6 Months+ Quad (0.5 mL Prefilled Syringe ) 05/05/2020 Fluzone High Dose - >Age 65 (Prefilled Syringe) 05/26/2023 Influenza (Generic) 05/08/2019 Influenza Adult (Generic) 05/19/2022,06/08/2021 PFIZER COVID-19 (MOHAN CAP), MRNA, LNP-S, PF, 30 MCG/0.3 ML LILI-SUCROSE, IM 02/24/2022 PFIZER COVID-19 (ORIGINAL FO RMULATION, PURPLE CAP) mRNA, LNP-S, PF, 30 MCG/0.3 ML DOSE 08/25/2021 Pneumococcal (Prevnar 20) 05/03/2022 Shingrix 11/23/2018,04/17/2018 Tdap (Generic) 05/03/2022 Family History Medical History Relation Comments Diabetes Brother Early Brother Hyperlipidemia Brother Hypertension Brother Defects Daughter Diabetes Daughter Hypertension Father Parkinson's Disease Father Diabetes Maternal Aunt 1 Cancer Maternal Aunt 2 Hypertension Maternal Grandfather Hypertension Maternal Grandmother Cancer Mother leukenia Heart Disease Mother Hypertension Mother Lupus Mother Stroke Mother mini Hypertension Sister Relation Status Comments Brother Daughter Father Maternal Aunt 1 Maternal Aunt 2 Maternal Grandfather Maternal Grandmother Mother Sister Social History Tobacco Use Types Packs/Day Years Used Date Smoking Tobacco: Never Smokeless Tobacco: Never Tobacco Cessation:Counseling Given: No Alcohol Use Standard Drinks/Week Comments Yes 0 (1 standard drink = 0.6 oz pur e alcohol) Occasionally PHQ-2 Answer Date Recorded Patient Health Questionnaire-2 Score 0 10/29/2024 Comments No Sex and Gender Information Value Date Recorded Sex Assigned at Not on file Legal Sex Female 10:07 AM [employer] 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 Gender Identity Not on file Sexual Orientation Not on file Last Filed Vital Signs Vital Sign Reading Time Taken Comments Blood Pressure 114/72 10/29/2024 1:36 PM CDT Pulse 82 10/29/2024 1:36 PM CDT Temperature 36.4 C (97.6 F) 10/29/2024 1:36 PM CDT Respiratory Rate 16 10/29/2024 1:36 PM CDT Oxygen Saturation 97% 10/29/2024 1:36 PM CDT Inhaled Oxygen Concentration - - Weight 104.1 kg (229 lb 9.6 oz) 10/29/2024 1:36 PM CDT Height 165.1 cm (5' 5 ) 10/29/2024 1:36 PM CDT Body Mass Index 38.21 10/29/2024 1:36 PM CDT Plan of Treatment Health Maintenance Due Date Last Done Comments Annual Medicare Wellness Visit 2021 COVID-19 Vaccine ( season) 2024 06/13/2024, 06/02/2022, 02/24/2022, Additional history exists Mammogram Screening 09/04/2026 09/04/2024, 3 DTaP, Tdap and Td Vaccines (2 - Td or Tdap) 05/03/2032 05/03/2022 Colorectal Cancer Screening Colonoscopy (10 Years) 10/23/2032 10/23/2022, 09/10/2022 Zoster Vaccines Completed 11/23/2018, 04/17/2018 Hepatitis C Completed 08/20/2020, 07/30/2020 Pneumococcal Vaccine: 50+ Years Completed 05/03/2022 Dexa Scan (General) Completed 05/25/2022, RSV Immunization or 60+ Years Completed 08/24/2023 PHQ-2 (Physician [facility]) Completed 10/29/2024 Meningococcal B Vaccine Aged Out No l onger eligible based on patient's age to complete this topic Meningococcal Vaccine Aged Out No chanell maral eligible based on patient's age to complete this topic RSV Immunizations Under 20 Months Aged Out No longer eligible based on patient's age to complete this topic Procedures Procedure Name Priority Date/Time Associated Diagnosis Comments COLLECTION VENOUS BLOOD VENIPUNCTURE Routine 11/20/2024 7:48 AM CDT Acquired hypothyroidism Primary hypertension Mixed hyperlipidemia BMI 38.0-38.9,adult CBC W/DIFF AUTOMATED Routine 11/20/2024 7:26 AM CDT BMI 38.0-38.9,adult LIPID PANEL Routine 11/20/2024 7:26 AM CDT Acquired hypothyroidism Mixed hyperlipidemia COMPREHENSIVE METABOLIC PANEL Routine 11/20/2024 7:26 AM CDT Primary hypertension URINALYSIS, AUTO, COMPLETE Routine 11/20/2024 7:26 AM CDT Primary hypertension THYROID STIM HORMONE TSH Routine 11/20/2024 7:26 AM CDT Acquired hypothyroidism THYROXINE, FREE (FT4) Routine 11/20/2024 7:26 AM CDT Acquired hypothyroidism MAMMOGRAM GENERIC (SCAN ORDER) 09/04/2024 COLONOSCOPY/EGD GENERIC (SCAN ORDER) 10/23/2022 BONE DENSITY GENERIC (SCAN ORDER) 05/25/2022 HEPATITIS C ANTIBODY 08/20/2020 9:20 AM 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 from Last 3 Months or Most Recently Relevant to Health Maintenance Results * (ABNORMAL) URINALYSIS (11/20/2024 7:26 AM CDT) COLOR (U) YELLOW 11/20/2024 2:54 PM CDT [facility] TRANSPARENCY CLEAR CLEAR 11/20/2024 2:54 PM CDT [facility] SPECIFIC GRAVITY (U) 1.015 1.003 - 1.040 11/20/2024 2:54 PM CDT [facility] U PH 6.0 5.0 - 9.0 11/20/2024 2:54 PM CDT [facility] PROTEIN RANDOM (U) NEGATIVE NEGATIVE 11/20/2024 2:54 PM CDT [facility] GLUCOSE (U) NEGATIVE NEGATIVE 11/20/2024 2:54 PM CDT [facility] KETONES MG/DL (U) NEGATIVE NEGATIVE 11/20/2024 2:54 PM CDT [facility] BILIRUBIN (U) NEGATIVE NEGATIVE 11/20/2024 2:54 PM CDT [facility] BLOOD (U) TRACE(A) NEGATIVE 11/20/2024 2:54 PM CDT [facility] UROBILINOGEN 0.2 0.0 - 2.0 EU/DL 11/20/2024 2:54 PM CDT [facility] NITRITES NEGATIVE NEGATIVE 11/20/2024 2:54 PM CDT [facility] LEUKOCYTES (U) NEGATIVE NEGATIVE 11/20/2024 2:54 PM CDT [facility] RBC/HPF 0-3 0 - 3 /HPF 11/20/2024 2:54 PM CDT [facility] WBC/HPF 0-3 0 - 3 /HPF 11/20/2024 2:54 PM CDT [facility] EPI/HPF 0-3 /HPF 11/20/2024 2:54 PM CDT [facility] BACTERIA (U) TRACE(A) NONE SEEN 11/20/2024 2:54 PM CDT [facility] URINE SPECIMEN OBTAINED BY CLEAN CATCH PROCEDURE / Unknown 11/20/2024 7:26 AM CDT us Jolene CAMERON URINE ORDERABLES Final Resu lt [facility] [address] [place] [address], [place] [phone] * (ABNORMAL) COMPREHENSIVE METABOLIC PANEL (11/20/2024 7:26 AM CDT) Pathologist [facility] SODIUM S/P/B 143 136 - 145 MMOL/L 11/20/2024 3:05 PM CDT [facility] POTASSIUM S/P/B 3.8 3.5 - 5.1 MMOL/L 11/20/2024 3:05 PM CDT -[facility] CHLORIDE S/P/B 103 98 - 107 MMOL/L 11/20/2024 3:05 PM CDT -[facility] CO2 32.4(H) 21 - 32 MMOL/L 11/20/2024 3:05 PM T -[facility] GLUCOSE 96 70 - 99 MG/DL 11/20/2024 3:05 PM CDT [facility] BUN 22(H) 7 - 18 MG/DL 11/20/2024 3:05 PM T [facility] CREATININE S/P/B 0.96 0.55 - 1.02 MG/DL 11/20/2024 3:05 PM T [facility] CALCIUM S/P/B 9.7 8.4 - 10.5 MG/DL 11/20/2024 3:05 PM CDT [facility] BILIRUBIN TOTAL S/P/B 0.6 0.2 - 1.0 MG/DL 11/20/2024 3:05 PM CDT [facility] ALKALINE PHOSPHATASE S/P/B 88 55 - 142 U/L 11/20/2024 3:05 PM T [facility] AST 18 15 - 37 U/L 11/23/2024 9:15 AM CDT [facility] Comment:CORRECTED ON 11/23 A T 0915: PREVIOUSLY REPORTED 6 ALT 26 14 - 59 U/L 11/20/2024 3:05 PM CDT [facility] TOTAL PROTEIN S/P/B 6.9 6.4 - 8.2 G/DL 11/20/2024 3:05 PM T [facility] ALBUMIN S/P/B 4.0 3.4 - 5.0 G/DL 11/20/2024 3:05 PM T [facility] ANION GAP 7.6 5 - 15 MMOL/L 11/20/2024 3:05 PM CDT [facility] Comment:REFERENCE RANGE NOT ESTABLISHED OSMOLALITY (CALC) 299 MOSM/KG 025 3:05 PM CDT [facility] Comment:REFERENCE RANGE NOT ESTABLISHED GFR ESTIMATE 64(L) >90 ML/MIN/1. 73 M2 11/20/2024 3:05 PM CDT [facility] GFR NOTES GFR REFERENCE S: 11/20/2024 3:05 PM T [facility] Comment: THE ESTIMATED GFR IS CALCULATED USING THE 2020 CKD-EPI EQUATION. THE FOLLOWING CATEGORIES FOR GRADING RENAL FUNCTION ARE RECOMMENDED BY THE INTERNATIONAL SOCIETY OF NEPHROLOGY (KDIGO 2012 CLINICAL PRACTICE GUIDELINE). G1,NORMAL OR HIGH: >89 ml/min/1.73 m2 G2,MILDLY DECREASED: 60-89 ml/min/1.73 m2 G3A,MILDLY TO MODERATELY DECREASED: 45-59 ml/min/1.73 m2 G3B,MODERATELY TO SEVERELY DECREASED: 30-44 ml/min/1.73 m2 G4,SEVERELY DECREASED: 15-29 ml/min/1.73 m2 G5,KIDNEY FAILURE: <15 ml/min/1.73 m2 11/20/2024 7:26 AM CDT us Jolene [facility] Edited Resu lt - Final [facility] [address] [place] [address], * (ABNORMAL) LIPID PANEL (11/20/2024 7:26 AM CDT) CHOLESTEROL 228(H) <200 MG/DL 11/20/2024 3:05 PM CDT [facility] TRIGLYCERIDES 204(H) <150 MG/DL 11/20/2024 3:05 PM CDT [facility] HDL 53 >40 MG/DL 11/20/2024 3:05 PM CDT [facility] LDL-C 134(H) <100 MG/DL 11/20/2024 3:05 PM CDT [facility] VLDL CALCULATION 41(H) 5 - 28 MG/DL 11/20/2024 3:05 PM CDT [facility] CHOL/HDL RATIO 4.3(H) 0.0 - 4.0 11/20/2024 3:05 PM CDT [facility] LDL/HDL 2.5(H) 0.41 - 2.13 11/20/2024 3:05 PM CDT [facility] NON HDL CHOLESTEROL 175(H) <140 MG/DL 11/20/2024 3:05 PM CDT [facility] 11/20/2024 7:26 AM CDT us Jolene [facility] Final Resul t [facility] [address] [place] [address], * (ABNORMAL) CBC W/DIFF AUTOMATED (11/20/2024 7:26 AM CDT) [facility] WBC 5.25 4.00 - 10.80 x10'3/uL 11/20/2024 2:55 PM CDT [facility] RBC 4.56 4.10 - 5.40 x10'6/uL 11/20/2024 2:55 PM CDT [facility] HGB 14.5 12.0 - 16.0 G/DL 11/20/2024 2:55 PM CDT [facility] HCT 42.4 36.0 - 47.0 % 11/20/2024 2:55 PM CDT [facility] MCV 93.0 78.0 - 100.0 FL 11/20/2024 2:55 PM CDT [facility] MCH 31.8(H) 27.0 - 31.0 PG 11/20/2024 2:55 PM CDT [facility] MCHC 34.2 33.0 - 36.0 G/DL 11/20/2024 2:55 PM CDT -[facility] RDW 12.6 11.5 - 14.5 % 11/20/2024 2:55 PM CDT -[facility] PLT 189 150 - 350 x10'3/uL 11/20/2024 2:55 PM CDT [facility] MPV 10.8(H) 7.4 - 10.4 FL 11/20/2024 2:55 PM CDT [facility] DIFFERENTIAL TYPE AUTOMATED DIFFERENTIAL 11/20/2024 2:55 PM CDT [facility] NEUTROPHILS % 63.8 % 11/20/2024 2:55 PM CDT [facility] LYMPHOCYTES % 23.4 % 11/20/2024 2:55 PM CDT [facility] MONOCYTES % 9.7 % 11/20/2024 2:55 PM CDT [facility] EOSINOP[facility] 2.5 % 11/20/2024 2:55 PM CDT [facility] BASOPHILS % 0.4 % 11/20/2024 2:55 PM CDT [facility] IMMATURE GRANS % 0.2 % 11/20/2024 2:55 PM CDT -[facility] ABS. NEUTROPHILS 3.35 1.60 - 8.30 x10'3/uL 11/20/2024 2:55 PM CDT [facility] ABS. LYMPHOCYTES 1.23 0.80 - 4.70 x10'3/uL 11/20/2024 2:55 PM CDT [facility] ABS. MONOCYTES 0.51 0.00 - 1.50 x10'3/uL 11/20/2024 2:55 PM CDT [facility] ABS. EOSINOPHILS 0.13 0.00 - 0.40 x10'3/uL 11/20/2024 2:55 PM CDT [facility] ABS. BASOPHILS 0.02 0.00 - 0.20 x10'3/uL 11/20/2024 2:55 PM CDT [facility] ABS. IMMATURE GRANULOCYTES 0.01 0.00 - 0.03 x10'3/uL 11/20/2024 2:55 PM CDT [facility] 11/20/2024 7:26 AM CDT Jolene Melodie [facility] Final Resul t Performing Organization Address City/[facility] Co de Phone Number [address] [address], [place] [phone] * THYROXINE, FREE (FT4) (11/20/2024 7:26 AM CDT) FREE T4 0.95 0.76 - 1.46 NG/DL 11/20/2024 3:05 PM CDT [facility] 11/20/2024 7:26 AM CDT Jolene [facility] Final Resul t Performing Organization Address [facility] Co de Phone Number [address] [address], [place] [phone] * (ABNORMAL) THYROID STIM HORMONE TSH (11/20/2024 7:26 AM CDT) TSH 3.936(H) 0.358 - 3.740 uIU/ML 11/20/2024 3:05 PM CDT [facility] 11/20/2024 7:26 AM CDT Jolene [facility] Final Resul t -[facility] [address] [facility] [place] [place] [address], * MAMMOGRAM GENERIC (SCAN ORDER) (09/04/2024) Anatomical Region Laterality Modality Other 09/04/2024 [facility] Scanned SCANNING Final Resu lt * COLONOSCOPY/EGD GENERIC (10/23/2022) 10/23/2022 [facility] Scanned SCANNING Final Resu lt * BONE DENSITY GENERIC (05/25/2022) Anatomical Region Laterality Modality Other 05/25/2022 [employer] [facility] Scanned SCANNING Final Resu lt * HEPATITIS C ANTIBODY (08/20/2020 9:20 AM 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) Pathologist [facility] HEPATITIS C AB <0.1 0.0 - 0.9 s/co ratio [facility] 1 Comment: Negative: < 0.8 Indeterminate: 0.8 - 0.9 Positive: > 0.9 The CDC recommends that a positive HCV antibody result be followed up with a HCV Nucleic Acid Amplification test ([id number]). 08/20/2020 9:20 AM 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 08/20/2020 Narrative [facility] - 08/22/2020 8:08 AM [employer] 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 Performed at: 01 - [facility] [address] [id number] [employer] Sales Consultant: Omar Patricio PhD, Phone: [phone] [facility]ene [facility] Final Resul t [facility] [address] [place] [address] [facility] 1 from Last 3 Months or Most Recently Relevant to Health Maintenance Insurance [facility] MEDIC[facility] Care Teams Joy Operator Relationship Specialty Start Date End Date Jolene Sewell APNP [address] [place] [id number] PCP - General NURSE PRACTITIONER 07/06/19
--- OUTSIDE RECORDS SUMMARY | 2024-12-29 07:56 | XMS_ITS | Data Portability ---
Author Organization [facility] [place] Address [address] [place] [address] Care Team Providers Care Traffic Operator Name Role Phone DANIELA TIMMONS Primary Care Provider [phone] Assessment Encounter Date Assessment Date Assessment LastModified by Organization Details LastModified Time 11/14/2021 11/14/2021 Annual gynecological exam performed. Patient will come back in a year unless there are new symptoms. Not available 11/14/2021 16:39:15 02/26/2023 02/26/2023 Annual gynecological exam performed. Patient will come back in a year unless there are new symptoms. Not available 02/26/2023 09:11:42 03/16/2024 03/16/2024 Annual gynecological exam performed. Patient will come back in a year unless there are new symptoms. [email or web address] Not available 03/16/2024 10:33:00 Plan of Treatment Reminders Order Date Submit Date Provider Last Modified By Organization Details Last Modified Time Details Appointments None recorded. Lab None recorded. Referral None recorded. Procedures None recorded. Surgeries None recorded. Imaging MAMMO, screening, digital, bilateral 2023 024 JOO [facility], [address], [place], [address], 14:08:18 MAMMO, screening, bilateral 2022 023 [email or web address] [facility], [address], [place], [address], 3 10:11:33 Medication Orders Premarin 0.625 mg/gram vaginal cream [address] [facility] #[id number], [address], [place], [place], [id number], 4 10:35:37 valacyclovi r 500 mg tablet [address] [facility] #[id number], [address], [place], [place], [id number], 3 09:19:43 Patient TargetsNo targets recorded. Patient InstructionsNo instructions recorded. Reason for Referral None Reported. Results Created Date Observation Date Name Description Value Unit Range Abnormal Flag Note LastModifiedBy Organization Detail LastModifiedTime 03/16/20 24 03/16/2024 IMAGE GUIDE D PAP AND HPV REGAR DLESS image guided Pap, HPV regardless of Pap result SEE RESULT S BELOW abnormal CASE REPOR T: Cytol ogy Gynec ologi radha Repor t Case: [id number] Autho hema courtney Provi rodrigo: Non-S taff, Physi kelly Colle cted: 03/16 1430 Order ing Locat ion: [place] [facility] Recei alexi: 03/17 0625 First Scree n: Kiesha Fernández Patho logis t: Vita Garcia MD Speci men: Eddie neville Pap - Image d, Cervi x STATE MENT OF ADEQU ACY: Satis facto ry for evalu ation Trans forma tion zone compo nent absen t ----- ----- ----- ----- ----- ----- ----- ----- ----- ----- ----- ----- ----- ----- ----- ----- ----- ---- FINAL DIAGN OSIS: Epith elial Cell Abnor malit y, Squam ous Cell: Atypi radha Squam ous Cells of Undet ermin ed Dana bartlett (ASC- [place]). Elect bradley enciso d by Vita Garcia MD on 2023 at 11:35 AM ----- ----- ----- ----- ----- ----- ----- ----- ----- ----- ----- ----- ----- ----- ----- ----- ----- ---- HPV RESUL TS: HPV mRNA E6/E7 : No HPV mRNA Detec mecca NOTE: This high risk HPV mRNA assay detec ts fourt een high- risk HPV types (16, 18, 31, 33, 35, 39, 45, 51, 52, 56, 58, 59, 66, 68) witho ut diffe renti ation . COMME NT: This speci men was revie wed by a Cytot echno logis t and/o r Patho logis t (as indic ated in this repor t) after evalu ation using the Thinp rep Imagi ng Syste m. CLINI RADHA INFOR MATIO N: Menst rual Statu s: LMP (if appli cable ): Clini radha Histo ry/Pr eviou s Pap: Type of Neopl renetta (if appli cable ): Joãoi clare t Clini radha Findi ngs: Other Histo ry: Hormo charity (if appli cable ): JOSE A GOODMAN FOLLO W-UP: Follo w up as warra nted, based on curre nt guide lines and indiv idual patie nt consi derat ions. Not Available [facility] (Lab) [address], [place], [address], 03/23/2024 12:40:34 02/20/20 22 02/17/2022 MAMMO , scree keiln, bilat eral No observ ation record ed. [email or web address] [facility] [address], [place], [address], 02/15/2023 15:48:13 09/05/19 25 09/04/2024 MAMMO , scree kelin, digit al, bilat eral No observ ation record ed. [facility] [address], [place], [address], 09/21/2024 04:01:14 Result Notes None recorded. Problems Name Problem SNOMED Code Status Onset Date Resolution Date Notes Provider Name and Address Organization Details Recorded Time Acute vaginiti s 60531328 Completed 201811/13/2021 Acute vaginitis ;Practice ID: 0001 Daniela Yovani sorto [facility] 2 11:32:39 Screenin g for malignan t neoplasm of rectum Completed 201211/13/2021 Screening for malignant neoplasms of the rectum;Pr actice ID: 0001 Danielachan Pina noreen [facility] 2 11:32:39 Leukocyt osis [id number] Completed 201311/13/2021 LEUKOCYTO SIS NOS;Pract ice ID: 0001 Danielachan Pina [facility] 2 11:32:39 Speciali zed medical examinat ion Completed 201311/13/2021 Routine gynecolog ical examinati on;Practi ce ID: 0001 Daniela Yovani sorto [facility] 2 11:32:39 Adult health examinat ion Completed 201411/13/2021 Routine general medical examinati on at a health care facility; Practice ID: 0001 Daniela sorto [facility] 2 11:32:39 Screenin g for malignan t neoplasm of cervix Completed 201411/13/2021 Pap Smear;Pra ctice ID: 0001 Danielachan Pina [facility] 2 11:32:[address] Concept Completed 201511/13/2021 Encntr for general adult medical exam w/o abnormal findings; Practice ID: 0001 Daniela Pina [facility] 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 2 11:32:39 Acute vulvitis 08655324 Completed 201811/13/2021 Vulvitis; Recorded Elsewhere : No Locati on: [facility] So urce: EHR Chron ic: N Practic e ID: 0001 Bill able Time: 08:30:00 AM Daniela Pina [facility] 2 11:32:39 Vaginiti s and vulvovag initis Completed 201011/13/2021 Vaginitis ;Recorded Elsewhere : No Locati on: [facility] So urce: EHR Chron ic: N Practic e ID: 0001 Bill able Time: 09:00:00 AM Daniela Pina [facility] 2 11:32:39 Problem Notes None recorded. Procedures Surgical History Date Name Laterality Status Provider Name and Address Organization Details Recorded Time 022 Date of Last Mammogram completed Madai [facility] 02/26/2023 09:13:41 019 Date of Last Pap Smear completed Madai Castillo [facility] 02/26/2023 09:13:[address] [facility] 11/14/2021 16:40:02 Partial Hysterectomy completed Daniela [facility] 11/14/2021 16:40:02 Orthopedic Surgery completed [facility] 11/14/2021 16:40:02 Colonoscopy completed REINADLO Chance [address], [place], [address], [facility] 02/26/2023 09:16:54 Tonsillectomy completed Hien Lang [facility] 06/21/2020 10:45:10 Cholecystectomy completed Hien Lang [facility] 06/21/2020 10:45:18 Imaging Results Imaging Date Name Status LastModified by Organiz ation Details LastModified Time 02/17/2022 MAMMO, screening, bilateral completed [email or web address] [facility] [address], [place], [address], 02/15/2023 15:48:13 09/04/2024 MAMMO, screening, digital, bilateral active [facility] [address], [place], [address], 09/21/2024 04:01:14 Procedure Notes None recorded. Medical Equipment None Reported. Allergies Allergen ID Allergen Name Allergen Category Reaction Reaction Severity Criticality Documentation Date Start Date Code Code System Note Provider Name and Address Organization Details Recorded Time 2659 sulfameth oxazole medicatio n Not available Not available Not available 06/21/2020 04396 RxNorm Hien sorto, [facility] 0 11:02:55 2660 trimethop rim medicatio n Not available Not available Not available 06/21/2020 45370 RxNorm Hien sorto, [facility] 0 11:03:01 Medications Name Sig Start Date Stop Date Status Note LastModified by Organization Details LastModified Time amoxicill in 500 mg capsule TAKE 4 CAPSULES BY MOUTH 1 HOUR PRIOR TO DENTAL PROCEDUR E 03/16 completed Not Available Not Available Not Available atorvasta tin 40 mg tablet active Not Available Not Available Not Available prednison e 10 mg tablet 4 TABS X 3D, 3 TABS X3D, 2 TABS X3D, 1 TAB X3D 03/14 completed Not Available Not Available Not Available cefuroxim e axetil 250 mg tablet 11/14 completed Not Available Not Available Not Available atorvasta tin 20 mg tablet TK 1 T PO QD 11/14 completed Not Available Not Available Not Available famotidin e 40 mg tablet TK 1 T PO QD PRN 11/14 completed Not Available Not Available Not Available prednison e 20 mg tablet 11/14 completed Not Available Not Available Not Available valsartan 160 mg-hydroc hlorothia zide 12.5 mg tablet take 1 tablet by oral route every day 11/14 completed Prescrib ed Elsewher e: Yes Loca tion: [facility] odify By: wally duran DateTime : 12/28/19 15 03:00:00 PM Not Available Not Available Not Available clobetaso l 0.05 % topical cream apply by topical route 2 times every day a thin layer to the affected area(s) 12/11 completed Prescrib ed Elsewher e: No Locat ion: [facility] odify By: amflorencio perezunter DateTime : 05/22/20 11 08:30:00 AM Not Available Not Available Not Available amlodipin e 2.5 mg tablet take 1 tablet by oral route every day 11/14 completed Prescrib ed Elsewher e: Yes Loca tion: [facility] odify By: octavia Eddy nter DateTime : 05/19/20 11 09:54:09 PM Not Available Not Available Not Available amlodipin e 5 mg tablet TK 1 T PO QD 02/26 completed Not Available Not Available Not Available valacyclo vir 500 mg tablet Take 1 tablet(s ) every day by oral route as directed for 90 days. 2024 active Not Available Not Available Not Avai lable omeprazol e 40 mg capsule,d elayed release TAKE 1 CAPSULE BY MOUTH 2 TIMES A DAY BEFORE BREAKFAS T AND DINNER. active Not Available Not Available No t Available spironola ctone 25 mg tablet take 1 tablet by oral route every day 11/14 completed Prescrib ed Elsewher e: Yes [facility] By: octavia Eddy nter DateTime : 05/19/20 11 09:54:09 PM Not Available Not Available Not Available nystatin- triamcino lone 100,000 unit/gram -0.1 % topical ointment APPLY TO THE AFFECTED AREA(S) BY TOPICAL ROUTE 1-2 TIMES PER DAY NEEDED ONLY. 05/03 completed Not Available Not Available Not Available meloxicam 7.5 mg tablet 02/26 completed Not Available Not Available Not Available losartan 100 mg-hydroc hlorothia zide 25 mg tablet TAKE 1 TABLET BY MOUTH DAILY 02/26 completed Not Available Not Available Not Available oxycodone -acetamin ophen 5 mg-325 mg tablet TAKE 1 TABLET BY MOUTH EVERY 6 HOURS NEEDED FOR PAIN 11/14 completed Not Available Not Available Not Available potassium 99 mg tablet 11/14 completed Prescrib ed Elsewher e: Yes Loca tion: [facility] odify By: octavia Valdezou nter DateTime : 05/19/20 11 09:54:09 PM Not Available Not Available Not Available famotidin e 20 mg tablet 02/26 completed Not Available Not Available Not Available aspirin 325 mg tablet,de layed release TAKE 2 TABLETS BY MOUTH EVERY DAY 05/03 completed Not Available Not Available Not Available levothyro xine 50 mcg tablet TK 1 T PO QD active Not Available Not Available No t Available Valtrex 1 gram tablet take 1 tablet (1000MG) by oral route every 24 hours 11/11 completed Prescrib ed Elsewher e: No Locat ion: [facility] odify By: marielena yee DateTime : 11/17/19 14 08:30:00 AM Not Available Not Available Not Available docusate sodium 100 mg capsule TAKE 1 CAPSULE BY MOUTH TWICE DAILY 02/26 completed Not Available Not Available Not Available omeprazol e 20 mg capsule,d elayed release TAKE 1 CAPSULE BY MOUTH EVERY DAY 05/03 completed Not Available Not Available Not Available albuterol sulfate HFA 90 mcg/actua tion aerosol inhaler INHALE 2 PUFFS INTO THE LUNGS EVERY 6 HOURS NEEDED FOR WHEEZING 11/14 completed Not Available Not Available Not Available ketoconaz ole 2 % topical cream 02/26 completed Not Available Not Available Not Available Lipitor 10 mg tablet take 1 tablet by oral route every day 11/14 completed Prescrib ed Elsewher e: Yes Loca tion: Augustina milton [facility] odify By: octavia tovar Encou nter DateTime : 05/19/20 11 09:54:09 PM Not Available Not Available Not Available Hibiclens 4 % topical liquid 11/14 completed Not Available Not Available Not Available spironola ctone 50 mg tablet TK 1 T PO QAM active Not Available Not Available No t Available Vitamin C 500 mg capsule,e xtended release 05/03 completed Prescrib ed Elsewher e: Yes Loca tion: Augustina milton [facility] odify By: marielena Bar r DateTime : 11/12/19 19 08:30:00 AM Not Available Not Available Not Available Vitamins and Minerals tablet active Prescrib ed Elsewher e: Yes Loca tion: Augustina milton [facility] odify By: alejandra [address] ncountmahad DateTime : 05/22/20 11 08:30:00 AM Not Available Not Available Not Available Diovan 40 mg tablet take 2 tablet by oral route every day 11/14 completed Prescrib ed Elsewher e: Yes Loca tion: Augustina milton [facility] odify By: octavia Valdezou nter DateTime : 05/19/20 11 09:54:09 PM Not Available Not Available Not Available Premarin 0.625 mg/gram vaginal cream insert (1G) by vaginal route nightly x 14 nights; then use twice weekly for maintena nce. active Not Available Not Available No t Available olmesarta n 40 mg-hydroc hlorothia zide 25 mg tablet TAKE 1 TABLET BY MOUTH DAILY 02/26 completed Not Available Not Available Not Available Vitamin C active Not Available Not Carmina ilable Not Available calcium active Not Available Not Avail able Not Available Fish Oil 05/03 completed Prescrib ed Elsewher e: Yes Loca tion: Augusitna milton [facility] odify By: marielena Bar r DateTime : 11/12/19 19 08:30:00 AM Not Available Not Available Not Available potassium 11/14 completed Not Available Not Available Not Available Cinnamon 03/16 completed Not Available Not Available Not Available valsartan 320 mg-hydroc hlorothia zide 25 mg tablet TK 1 T PO QD 06/21 completed Not Available Not Available Not Available Tirosint 13 mcg capsule take 1 capsule by oral route every day 11/14 completed Prescrib ed Elsewher e: Yes Loca tion: [facility] odify By: wally duran DateTime : 12/28/19 15 03:00:00 PM Not Available Not Available Not Available Multi Vitamin active Not Available Not Available Not Available Aerochamb er Plus Flow-Vu,M edium Mask USE WITH ALBUTERO L INHALER 03/16 completed Not Available Not Available Not Available potassium chloride ER 20 mEq tablet,ex tended release TAKE 2 TABLETS BY MOUTH TWICE DAILY active Not Available Not Available No t Available Acid Rn Pediatric (omeprazo le) 20 mg capsule,d elayed release 02/26 completed Not Available Not Available Not Available Vitals Date Recorded Body height Body mass index (BMI) Body weight Systolic blood pressure Diastolic blood pressure Provider Name and Address Organization Details Last Updated DateTime 11/14/2021 163.83 cm 39.9 kg/m2 963665.8 g 132 mm[Hg] 80 mm[Hg] Daniela Pina [facility] 2 16:39:42 Date Recorded Body height Body mass index (BMI) Body weight Systolic blood pressure Diastolic blood pressure Provider Name and Address Organization Details Last Updated DateTime 02/26/2023 163.83 cm 36.3 kg/m2 09562.36 g 122 mm[Hg] 75 mm[Hg] Madai Castillo [facility] 3 09:12:01 Date Recorded Body height Body mass index (BMI) Body weight Systolic blood pressure Diastolic blood pressure Provider Name and Address Organization Details Last Updated DateTime 03/14/2023 163.83 cm 35.8 kg/m2 85064.58 g 101 mm[Hg] 66 mm[Hg] Madai Castillo [facility] 3 17:55:54 Date Recorded Body height Body mass index (BMI) Body weight Systolic blood pressure Diastolic blood pressure Provider Name and Address Organization Details Last Updated DateTime 05/03/2023 163.83 cm 35.4 kg/m2 29790.96 g 112 mm[Hg] 70 mm[Hg] Tena Griffin [facility] 3 09:45:47 Date Recorded Body height Body mass index (BMI) Body weight Systolic blood pressure Diastolic blood pressure Provider Name and Address Organization Details Last Updated DateTime 03/16/2024 163.83 cm 38.5 kg/m2 128854.0 6 g 118 mm[Hg] 76 mm[Hg] Maribell Arnoldo [facility] 4 10:34:25 Social History Question Answer Notes LastModified by Organizat ion Details LastModified Time Tobacco Smoking Status Never Smoker Geovanna sorto, [facility] 03/14/2023 17:42:53 Do You Have An Advance Directive? Yes Information n ot available 11/14/2021 Are You Blind Or Do You Have Difficulty Seeing? No Information n ot available 11/14/2021 What Is Your Level Of Caffeine Consumption? Occasional Information not available 02/26/2023 How Much Tobacco Do You Chew? None Information not available 11/14/2021 In The 14 Days Before Symptom Onset, Have You Had Close Contact With A Laboratory-confirm ed COVID-19 While That Case Was Ill? No Information n ot available 11/14/2021 In The 14 Days Before Symptom Onset, Have You Had Close Contact With A Person Who Is Under Investigation For COVID-19 While That Person Was Ill? No Information not available 11/14/2021 Have You Been To An Area Known To Be High Risk For COVID-19? No Information not available 11/14/2021 Are You Deaf Or Do You Have Serious Difficulty Hearing? No Information not available 11/14/2021 What Type Of Diet Are You Following? REGULAR Information n ot available 11/14/2021 What Is The Highest Grade Or Level Of School You Have Completed Or The Highest Degree You Have Received? [id number] Information not available 11/14/2021 Are There Any Guns Present In Your Home? No Information not available 11/14/2021 Do You Use Protection During Sex? Always Information not available 11/14/2021 Do You Use Your Seat Belt Or Car Seat Routinely? Yes Information not available 11/14/2021 Do You Have Smoke And Carbon Monoxide Detectors In Your Home? Yes Information not available 11/14/2021 How Much Tobacco Do You Smoke? No Information not available 11/14/2021 Do You Use Sunscreen Routinely? Yes Information not available 11/14/2021 Have You Used IV Drugs? No Information not available 11/14/2021 Do You Have Difficulty Walking Or Climbing Stairs? No [email or web address] Information not available 03/14/2023 Sex: Unknown Functional Status Question Answer Note LastModified by Organizat ion Details LastModified Time Do you use any illicit or recreational drugs? No Information not available 11/14/2021 What is your level of alcohol consumption? None Information not available 11/14/2021 Are you able to walk? YESWOREST Information not available 11/14/2021 Are you able to care for yourself? 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 No [email or web address] Information not available 03/14/2023 What is your exercise level? Occasional Information not available 11/14/2021 Mental Status Question Answer Note LastModified by Organization D etails LastModified Time Do you feel stressed (tense, restless, nervous, or anxious, or unable to sleep at night)? [id number] Information not available 11/14/2021 Family History Relationship Description Onset Age of this Age Resolved Age Notes LastModified by Organization Details LastModified Time Mother Hypertensive disorder [email or web address] Not available 2019 10:44:14 Mother Lupus erythematosu s [email or web address] Not available 2023 09:45:01 Mother Stroking massage [email or web address] Not available 2023 09:45:01 Father Hypertensive disorder [email or web address] Not available 2019 10:44:14 Brother Diabetes mellitus [email or web address] Not available 2019 10:44:48 Maternal Uncle Diabetes mellitus [email or web address] Not available 2019 10:44:48 Maternal Aunt Diabetes mellitus [email or web address] Not available 2019 10:44:48 Medical History Condition Response Hypertension Y Dermatologic Disorders Y High Cholesterol Y Gynecological History Statement/Question Response Abnormal Pap N Date of Last Mammogram 02/17/2022 On BCP's at Conception? Y N Was last menstrual period normal Y STIs/STDs N HPV Vaccine N Current Control Method Hysterectom y Age at First Child 21 Sexually Active? Y Menses Monthly N Age of first menstrual cycle 1968 Date of Last Pap Smear 11/11/2018 Sexual Problems? N LMP Unknown N Obstetrics History GPAL:G 3 P 0 0 0 3 Type Value Living 3 Total 3 Past Encounters Encounter ID Performer Location Encounter Start Date Encounter Closed Date Diagnosis/Indication Diagnosis SNOMED-CT Code Diagnosis ICD10 Code Diagnosis Note [id number] Delaney Dillon , [facility] [address] [address] 06/21/2020 10:26:36 06/21/2020 17:03:15 Gynecologic examination [id number] Z01.419 Take Calcium with Vitamin D 12-1500mg daily. Do monthly self breast exams. It is advised to get annual flu shot in the fall and she could obtain at [facility] or [facility] clinic. If you haven't received the Tdap vaccine in the last 10 years you should obtain one as well. Have mammogram yearly, bone density every 2-3 years and colonoscop y every 5-10 years depending on findings and history. Engage in daily exercise of low impact aerobic exercise 45-60 minutes 4-5 times weekly. Avoid tobacco and illicit drugs as well as using moderation with alcohol intake less than 1-2 8 oz beverages daily. This lifestyle behavior pattern will lead to less health conditions and longer life span. If BMI greater than 25 weight watchers or dietary consult advised. Questions have been answered. Patient appears to understand instructio ns, but if you have any further questions call or respond to this email Dexa due 66yo Colonoscop y UTD Pap/hpv d/c unles otherwise indicated Hysterecto my w/ BS for precancer cells; >3 + normal pap/hpv since this procedure. 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 Only uses ointment prn. Managed really well. [id number] Delaney Dillon [facility] [address] [address] 11/14/2021 15:44:27 11/14/2021 17:43:24 Gynecologic examination [id number] Z01.419 Take Calcium with Vitamin D 12-1500mg daily. Do monthly self breast exams. It is advised to get annual flu shot in the fall and she could obtain at [facility] or [facility] clinic. If you haven't received the Tdap vaccine in the last 10 years you should obtain one as well. Have mammogram yearly, bone density every 2-3 years and colonoscop y every 5-10 years depending on findings and history. Engage in daily exercise of low impact aerobic exercise 45-60 minutes 4-5 times weekly. Avoid tobacco and illicit drugs as well as using moderation with alcohol intake less than 1-2 8 oz beverages daily. This lifestyle behavior pattern will lead to less health conditions and longer life span. If BMI greater than 25 weight watchers or dietary consult advised. Questions have been answered. Patient appears to understand instructio ns, but if you have any further questions call or respond to this email Pap/hpv d/c per asccp unless otherwise indicated (has years of pap/hpv post-hyst completed neg) STD Screen declined Genetic Screen declined Colon Screen UTD PCP Dexa Screen UTD PCP Routine [facility] PCPMammo ordered [id number] Delaney Dillon [facility] [address],[place] [address] 02/26/2023 08:58:04 02/26/2023 09:40:27 Gynecologic examination [id number] Z01.419 Take Calcium with Vitamin D 12-1500mg daily. Do monthly self breast exams. It is advised to get annual flu shot in the fall and she could obtain at [facility] or [facility] clinic. If you haven't received the Tdap vaccine in the last 10 years you should obtain one as well. Have mammogram yearly, bone density every 2-3 years and colonoscop y every 5-10 years depending on findings and history. Engage in daily exercise of low impact aerobic exercise 45-60 minutes 4-5 times weekly. Avoid tobacco and illicit drugs as well as using moderation with alcohol intake less than 1-2 8 oz beverages daily. This lifestyle behavior pattern will lead to less health conditions and longer life span. If BMI greater than 25 weight watchers or dietary consult advised. Questions have been answered. Patient appears to understand instructio ns, but if you have any further questions call or respond to this email Pap/hpv d/c per asccp unless otherwise indicated (has years of pap/hpv post-hyst completed neg) STD Screen declined Genetic Screen declined Colon Screen UTD PCP Dexa Screen UTD PCP Routine Labs UTD PCPMammo ordered Screening mammography [id number] Z12.31 Genital he rpes simplex [id number] A60.9 In a new relations ip after 9yrs.Wants to take precaution from spreading HSV; no outbreak since 1998 but still would like to take precaution s.safe sex practices counseled on.Decline d std screen today b/c they have no been physically sexually intimate as of yet. [id number] Delaney Dillon , [facility] [address] [address] 03/14/2023 17:42:17 03/15/2023 10:58:03 Dyspareunia [id number] N95.2 Trial of premarin for dyspareuni a/vaginal atrophy postmenopa use.med check x 8wks Counseled on the following: Vaginal Dryness: Bothersome symptoms of the vagina and vulva (outer lips of the vagina) increase during and after the menopause transition or may start several years after menopause. The decrease in estrogen with menopause is a major contributo r to vaginal dryness, itching, burning, discomfort , and pain during intercours e or other sexual activity. Vaginal atrophy is the medical term that describes these changes. The genitourin adriane syndrome of menopause includes bothersome vaginal atrophy often combined with urinary symptoms. Vaginal atrophy may significan tly affect your quality of life, sexual satisfacti on, and relationsh ip with your partner. Unlike hot flashes, which generally improve with time, vaginal symptoms typically worsen with time because of aging and a prolonged lack of estrogen. Vaginal estrogen therapy An effective and safe treatment, low-dose local estrogen is applied directly to the vagina to restore vaginal health and relieve vaginal dryness and discomfort with sexual activity. Improvemen ts usually occur within a few weeks, although complete relief may take several months. This even may be an option for women with a history of breast or uterine cancer but only after careful considerat ion of risks and benefits with a healthcare provider and oncologist . Governmen t-approved low-dose vaginal estrogen products are available by prescripti on as vaginal creams (used two or three nights/wee k), a vaginal estradiol tablet (used twice/week ), and an estradiol vaginal ring (changed every 3 months). All are highly effective. You may wish to try several different forms and choose the one you prefer. Standard doses of estrogen therapy provided to treat hot flashes also treat vaginal dryness, although some women still benefit from additional low-dose vaginal estrogen treatment. If only vaginal symptoms are present, low doses of estrogen applied to the vagina are recommende d. Resources: https://bay w.[employer].org/docs /default-s ource/for- women/mn-v aginal-dry ness.pdf Time spent in visit is a total of 25 mins with at least 50% of visit consisting of counseling and review of plan of care. [id number] [facility] [address],[place] [address] 05/03/2023 09:36:53 05/03/2023 10:01:47 Dyspareunia [id number] N95.2 Patient is here today for a medicaton check of premarin vag estrogen cream. She voices goals of therapy have been met with use of this therapy. She denies neg side effects. She is eating, drinking, sleeping well; moods are stable & neg AUB. Wishes to continue this method of vag therapy. Appropriat e to continue this medication . Time spent in visit is a total of 15 mins with at least 50% of visit consisting of counseling and review of plan of care. TRISTAN Martinez [facility] [address],[place] [address] 03/16/2024 09:41:55 03/16/2024 11:17:57 Gynecologic examination [id number] Z01.419 WWEvaginal pap done per pt preference STI screen declinedma mmogram order givendexa UTD/PCPcol onoscopy UTD/PCProu alissa labs UTD/PCP Do monthly self breast exams. It is advised to get annual flu shot in the fall and she could obtain at local pharmacy. If you haven't received the Tdap vaccine in the last 10 years you should obtain one as well. Have mammogram yearly, bone density every 2-3 years and stay up to date on colon cancer screening. Engage in regular exercise. Avoid tobacco and illicit drugs.This lifestyle behavior pattern will lead to less health conditions and longer life span. If BMI greater than 25 dietary consult advised. Questions have been answered. Screening for malignant neoplasm of breast [id number] Z12.39 Health Concerns Section Related Observation LastModified by Organization Detai ls LastModified Time None Recorded Concern Status LastModified by Organization Details LastModified Time None Recorded Advance Directives Directive Y: Payers Encounter Date Sequence Insurance Name Policy Number Policy Edwards Covered Member ID Edwards Member ID Guarantor Name 11/14/2021 1 [employer] [id number] Adina Solanokimberley [id number] Adina Drummond Pinkley 11/14/2021 2 () Adina Drummond Pinkley [id number] Adina Drummond Pinkley 02/26/2023 2 () Adina Drummond Pinkley [id number] Adina Drummond Pinkley 02/26/2023 1 [place] Adina Drummond Pinkley [id number] Adina Drummond Pinkley 03/14/2023 3 [place] Adina Solanoley [id number] Adina Drummond Pinkley 03/14/2023 1 [place] Adina Drummond Pinkley [id number] Adina Drummond Pinkley 05/03/2023 2 () Adina Drummond Pinkley [id number] Adina Drummond Pinkley 05/03/2023 1 [place] Adina Drummond Pinkley [id number] Adina Drummond Pinkley 03/16/2024 1 [place] Adina Sidhu [id number] Adina Sidhu 03/16/2024 2 [facility] Adina Sidhu [id number] Adina Sidhu Notes Date Note Type Note Provider Name and Address Organization Details Recorded Time 11/14/2021 text/html 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 Post-MenopausalRepor [facility] bypatient.Menopausal Symptoms:no menopausal symptoms; normal vaginal lubrication Vaginal Bleeding:history of menopause having occurred; no history of post menopausal bleeding Urinary Symptoms:no hematuria; no incontinence; no nocturia; no urinary frequency Vulva:no genital lesion; no vulvar atrophy Vagina:normal vaginal discharge; no vaginal atrophy Breast:no breast lump; no nipple discharge; no breast pain Sexual Complaints:no sexual complaints Psychological Symptoms:no depression; no anxiety Preventive Measures:encourage regular mammograms starting age 40; encourage self breast examination; encourage regular exercise; encourage no tobacco use; needs to schedule mammogram; history of recent colonoscopy; needs to schedule bone density (Thinks her PCP has done this testing.) KADEN Chance [address], [place], [address], [facility] 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 Post-MenopausalRepor mecca bypatient.Menopausal Symptoms:no menopausal symptoms; normal vaginal lubrication Vaginal Bleeding:history of menopause having occurred; no history of post menopausal bleeding Urinary Symptoms:no hematuria; no incontinence; no nocturia; no urinary frequency Vulva:no genital lesion; no vulvar atrophy Vagina:normal vaginal discharge; no vaginal atrophy Breast:no breast lump; no nipple discharge; no breast pain Sexual Complaints:no sexual complaints Psychological Symptoms:no depression; no anxiety Preventive Measures:encourage regular mammograms starting age 40; encourage self breast examination; encourage regular exercise; encourage no tobacco use; needs to schedule mammogram; history of recent colonoscopy KADEN Chance [address], [place], [address], [facility] 02/26/2023 09:25:11 03/14/2023 text/html Here today for painful sexual activity with partner. Neg pain of abd/pelvis/flankNeg urinary sx'sNeg GI sx'sNeg N/V/F/C/DNeg Vag d/c, odor, irritation, itching TRISTAN Chance- [address], [place], [address], [facility] 03/14/2023 18:48:24 05/03/2023 text/html Here today for medication check of premarin vaginal estrogen treatment. TRISTAN Chance- [address], [place], [address], [facility] 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 Post-MenopausalRepor mecca bypatient.Menopausal Symptoms:no menopausal symptoms; normal vaginal lubrication Vaginal Bleeding:history of menopause having occurred; no history of post menopausal bleeding Urinary Symptoms:no hematuria; no incontinence; no nocturia; no urinary frequency Vulva:no genital lesion; no vulvar atrophy Vagina:normal vaginal discharge; no vaginal atrophy Breast:no breast lump; no nipple discharge; no breast pain Sexual Complaints:no sexual complaints Psychological Symptoms:no depression; no anxiety Preventive Measures:encourage regular mammograms starting age 40; encourage self breast examination; encourage regular exercise; encourage no tobacco useNotes:68yoWWEh/o hyst, ovaries remain (30+ yrs ago for abnormal paps)all paps normal sincelast pap 2019 mammogram exa - UTD, 2022, through PCPcolonoscopy UTD uses vaginal estrogen cream 2x per week, doing well, no issues TRISTAN Martinez [address], [place], [address], [facility] 03/16/2024 11:05:05 OBGyn Episode Ob Episode Information Episode Created Date Number of Fetuses Patient Bloodtype Patient rh Status Prepregnancy Weight lbs Domestic Partner Domestic Partner Phone Father Name Regional Wildlife Agent Status 06/21/20 20 1 CLOSED Fetus Data First Name Last Name Admitted to NICU Weight (g) Sex Living Outcome Pediatric Complications Fetus ID Race Codes Race Delivery Type M [id number] Repeat Henry Calculation Initial Henry Date Initial Exam Date Initial Exam Provider Initial Ultrasound Date Last Menstrual Period Date Ultra Sound Weeks Gestation 0 Eighteen To Twenty Week Henry Update Ultra Sound Date Fundal Height At Umbil Quickening Date Ultra Sound Latest Weeks Gestation Final Henry Confirmed By Final Henry Confirmed Date Final Henry Date Ultra Sound Latest Days Gestation 0 0 Menstrual History Last Menstrual Date Menses Monthly On Bcp Conception Prior Menses Frequency Hcg Plus Date Menarche Onset Age Delivery Information Delivery Date Delivery Type Labor Anesthesia Weeks Gestation Incision Type Labor Labor Length Hrs Delivered By Post Complications Tubal Sterilization Discharge Date Comments 4 Discharge Information Feeding Method Contraceptive Method Maternal HG B and HCT Levels Ob Episode Information Episode Created Date Number of Fetuses Patient Bloodtype Patient rh Status Prepregnancy Weight lbs Domestic Partner Domestic Partner Phone Father Name Regional Wildlife Agent Status 06/21/20 20 1 CLOSED Fetus Data First Name Last Name Admitted to NICU Weight (g) Sex Living Outcome Pediatric Complications Fetus ID Race Codes Race Delivery Type F [id number] Primary Henry Calculation Initial Henry Date Initial Exam Date Initial Exam Provider Initial Ultrasound Date Last Menstrual Period Date Ultra Sound Weeks Gestation 0 Eighteen To Twenty Week Henry Update Ultra Sound Date Fundal Height At Umbil Quickening Date Ultra Sound Latest Weeks Gestation Final Henry Confirmed By Final Henry Confirmed Date Final Henry Date Ultra Sound Latest Days Gestation 0 0 Menstrual History Last Menstrual Date Menses Monthly On Bcp Conception Prior Menses Frequency Hcg Plus Date Menarche Onset Age Delivery Information Delivery Date Delivery Type Labor Anesthesia Weeks Gestation Incision Type Labor Labor Length Hrs Delivered By Post Complications Tubal Sterilization Discharge Date Comments 7 Discharge Information Feeding Method Contraceptive Method Maternal HG B and HCT Levels Ob Episode Information Episode Created Date Number of Fetuses Patient Bloodtype Patient rh Status Prepregnancy Weight lbs Domestic Partner Domestic Partner Phone Father Name Regional Wildlife Agent Status 06/21/20 20 1 CLOSED Fetus Data First Name Last Name Admitted to NICU Weight (g) Sex Living Outcome Pediatric Complications Fetus ID Race Codes Race Delivery Type F [id number] Repeat Henry Calculation Initial Henry Date Initial Exam Date Initial Exam Provider Initial Ultrasound Date Last Menstrual Period Date Ultra Sound Weeks Gestation 0 Eighteen To Twenty Week Henry Update Ultra Sound Date Fundal Height At Umbil Quickening Date Ultra Sound Latest Weeks Gestation Final Henry Confirmed By Final Henry Confirmed Date Final Henry Date Ultra Sound Latest Days Gestation 0 0 Menstrual History Last Menstrual Date Menses Monthly On Bcp Conception Prior Menses Frequency Hcg Plus Date Menarche Onset Age Delivery Information Delivery Date Delivery Type Labor Anesthesia Weeks Gestation Incision Type Labor Labor Length Hrs Delivered By Post Complications Tubal Sterilization Discharge Date Comments 9 Discharge Information Feeding Method Contraceptive Method Maternal HG B and HCT Levels
--- OUTSIDE RECORDS SUMMARY | 2024-12-29 07:56 | XMS_ITS | Data Portability ---
Author Organization [place] [facility] [employer], Main Office Address [address] [place] [address] Assessment Encounter Date Assessment Date Assessment LastModified by Organization Details LastModified Time 11/15/2022 11/15/2022 This note is dictated and transcribed by [employer] Direct Software. Sagger Filler variances may occur. Despite proofreading, typographical errors may occur. [email or web address] Not available 11/15/2022 09:50:05 Plan of Treatment Reminders Order Date Submit Date Provider Last Modified By Organization Details Last Modified Time Details Appointments None record ed. Lab None record ed. Referral None record ed. Procedures None record ed. Surgeries None record ed. Imaging None record ed. Medication Orders None record ed. Patient TargetsNo targets recorded. Patient InstructionsNo instructions recorded. Reason for Referral None Reported. Problems Name Problem SNOMED Code Status Onset Date Resolution Date Notes Provider Name and Address Organization Details Recorded Time Hyperchole sterolemia 59454955 Active 2017 Not Available [facility] 3 18:54:01 Heartburn 11954224 Active 2017 Not Available [facility] 3 18:54:01 Thyroid nodule 718265503 Active 2018 yearly 10/28 Not Available [facility] 3 18:54:01 Hypertensi ve disorder 08718663 Active 2017 Not Available [facility] 3 18:54:01 Onychomyco sis of toenails 347898112 Active 2021 Not Available [facility] 3 18:54:02 Hypothyroi dism 83971979 Active 2018 Not Available [facility] 3 18:54:02 Hyperlipid emia 28169382 Active 2018 Not Available [facility] 3 18:54:02 Essential hypertensi on 36967396 Active 2018 Not Available [facility] 18:54:02 Tailor's bunion of right foot 262239870529 9109 Active 2022 Aguilar Tompkins DPM [address], [address], [place], [address] , [facility] 09:50:13 Notes:allergies, herpes, eso phagel spasms, Problem Notes None recorded. Procedures Surgical History Date Name Laterality Status Provider Name and Address Organization Details Recorded Time 11/16/19 23 Nail Debridement completed Aguilar Tompkins DPM [address], [address], [place], [address], [facility] 11/15/2022 09:49:36 delivery completed Not Available [facility] 10/10/2022 18:53:08 Cholecystectomy completed Not Available [facility] 10/10/2022 18:53:08 Knee Replacement completed Not Available [facility] 10/10/2022 18:53:08 Tonsillectomy completed Not Available [facility] 10/10/2022 18:53:08 Hysterectomy, Partial completed Not Available [facility] 10/10/2022 18:53:08 Imaging Results None recorded. Procedure Notes None recorded. Medical Equipment None Reported. Allergies Allergen ID Allergen Name Allergen Category Reaction Reaction Severity Criticality Documentation Date Start Date Code Code System Note Provider Name and Address Organization Details Recorded Time 32592 Substance with sulfonami de structure and antibacte rial mechanism of action (substanc e) medicatio n Not available Not available Not available 10/10/2022 54623 8003 SNOMED Not Available [facility] 18:54:59 54966 Sular medicatio n chest pain moderate Not available 10/10/2022 93840 1 RxNorm Not Available [facility] 18:54:59 Medications Name Sig Start Date Stop Date Status Note LastModified by Organization Details LastModified Time amoxicillin 500 mg capsule TAKE 4 CAPSULES BY MOUTH 1 HOUR BEFORE DENTAL PROCEDURE FOR 2 DAYS active Not Available Not Available N ot Available atorvastatin 40 mg tablet active Not Available Not Available Not Available cefuroxime axetil 250 mg tablet active Not Available Not Available Not Available atorvastatin 20 mg tablet TK 1 T PO QD active Not Available Not Available No t Available cimetidine 400 mg tablet 1 po bid prn active Not Available Not Available No t Available famotidine 40 mg tablet TK 1 T PO QD PRN active Not Available Not Available No t Available prednisone 20 mg tablet active Not Available Not Available No t Available clobetasol 0.05 % topical cream KATHLEEN THIN LAYER EXT AA QD active Not Available Not Available No t Available amlodipine 5 mg tablet TK 1 T PO QD active Not Available Not Available No t Available losartan 100 mg-hydrochlor othiazide 25 mg tablet TK 1 T PO D active Not Available Not Available No t Available oxycodone-keith taminophen 5 mg-325 mg tablet TAKE 1 TABLET BY MOUTH EVERY 6 HOURS NEEDED FOR PAIN active Not Available Not Available No t Available famotidine 20 mg tablet TK 1 T PO BID active Not Available Not Available No t Available aspirin 325 mg tablet,delaye d release TAKE 2 TABLETS BY MOUTH EVERY DAY active Not Available Not Available No t Available levothyroxine 50 mcg tablet TAKE 1 TABLET BY MOUTH EVERY DAY active Not Available Not Available No t Available triamcinolone acetonide 0.1 % topical ointment APPLY AA BID FOR 2 WEEKS active Not Available Not Available No t Available docusate sodium 100 mg capsule TAKE 1 CAPSULE BY MOUTH TWICE DAILY active Not Available Not Available No t Available omeprazole 20 mg capsule,delay ed release TAKE 1 CAPSULE BY MOUTH EVERY DAY active Not Available Not Available No t Available albuterol sulfate HFA 90 mcg/actuation aerosol inhaler INHALE 2 PUFFS INTO THE LUNGS EVERY 6 HOURS NEEDED FOR WHEEZING active Not Available Not Available No t Available ketoconazole 2 % topical cream active Not Available Not Available Not Available spironolacton e 50 mg tablet TK 1 T PO QAM active Not Available Not Available No t Available olmesartan 40 mg-hydrochlor othiazide 25 mg tablet TAKE 1 TABLET BY MOUTH DAILY active Not Available Not Available No t Available potassium chloride 2017 active Not Available Not Available Not Avai lable levothyroxine 2017 active Not Available Not Available Not Avai lable calcium 2021 active Not Available Not Available Not Avai lable biotin 2021 active Not Available Not Available Not Avai lable famotidine 2017 active Not Available Not Available Not Avai lable amlodipine 2017 active Not Available Not Available Not Avai lable multivitamin 2021 active Not Available Not Available Not Avai lable valsartan 320 mg-hydrochlor othiazide 25 mg tablet TK 1 T PO QD active Not Available Not Available No t Available omeprazole 20 mg tablet,delaye d release TK 1 T PO QD active Not Available Not Available No t Available D3 DOTS 2021 active Not Available Not Available Not Avai lable K-Tab 20 mEq tablet,extend ed release TK 2 TS PO BID active Not Available Not Available No t Available vit E 100 unit-zinc 12.5 zf-qegheh-amb opene-bilberr y-herb #261 capsule Take by oral route. 2021 active Not Available Not Available Not Avai lable vit C 1,000 dv-udfcgmxh-f inerals-MSM 1,000 mg oral efferv powder pack Take by oral route. 2021 active Not Available Not Available Not Avai lable Fluvirin 5665-6762 (PF) 45 mcg(15 mcg x3)/0.5 mL intramuscular syringe ADM 0.5ML IM UTD active Not Available Not Available No t Available Shingrix (PF) 50 mcg/0.5 mL intramuscular suspension, kit ADM 0.5ML IM UTD active Not Available Not Available No t Available Fluarix Quad (PF) 60 mcg (15 mcg x 4)/0.5 mL IM syringe ADM 0.5ML IM UTD active Not Available Not Available No t Available Afluria Qd (36 mos up)(PF)60 mcg (15 mcg x4)/0.5 mL IM syringe ADM 0.5ML IM UTD active Not Available Not Available No t Available Vitals Date Recorded Body mass index (BMI) Body height Body weight Provider Name and Address Organization Details Last Updated DateTime 05/31/2022 47 kg/m2 144.78 cm 10148.54 g Not Available [facility] 10/10/2022 18:53:42 Date Recorded Body mass index (BMI) Body height Oxygen saturation Oxygen saturation in Arterial blood by Pulse oximetry Heart rate Respiratory rate Body weight Systolic blood pressure Diastolic blood pressure Provider Name and Address Organization Details Last Updated DateTime 2 47 kg/m2 144.78 cm 97 % 97 % 67 /min 16 /min 72253.5 4 g 136 mm[Hg] 96 mm[Hg] Not Available [facility] 3 18:53:41 Date Recorded Body mass index (BMI) Body height Oxygen saturation Oxygen saturation in Arterial blood by Pulse oximetry Heart rate Respiratory rate Body weight Systolic blood pressure Diastolic blood pressure Provider Name and Address Organization Details Last Updated DateTime 2 47 kg/m2 144.78 cm 97 % 97 % 68 /min 14 /min 20498.5 4 g 114 mm[Hg] 73 mm[Hg] Not Available [facility] 3 18:53:41 Date Recorded Body height Heart rate Respiratory rate Oxygen saturation Oxygen saturation in Arterial blood by Pulse oximetry Systolic blood pressure Diastolic blood pressure Provider Name and Address Organization Details Last Updated DateTime 3 144.78 cm 69 /min 14 /min 98 % 98 % 116 mm[Hg] 59 mm[Hg] Hien Lang [facility] 3 09:28:41 Social History Question Answer Notes LastModified by OMEGA MORGAN Details LastModified Time Tobacco Smoking Status Never Smoker [facility]ovanna [facility]o, [facility] 11/15/2022 09:23:01 What Is Your Level Of Caffeine Consumption? Occasional [id number] Information not available 10/10/2022 What Was The Date Of Your Most Recent Tobacco Screening? 05/31/2022 Information not available 11/15/2022 Have You Ever Been Counseled For Unhealthy Alcohol Use? No Information not available 11/15/2022 Has Tobacco Cessation Counseling Been Provided? No Information not available 11/15/2022 Sex: Unknown Functional Status Question Answer Note LastModified by OMEGA MORGAN Details LastModified Time Do you use any illicit or recreational drugs? No Information not available 11/15/2022 Do you or have you ever used any other forms of tobacco or nicotine? No Information not available 11/15/2022 What is your level of alcohol consumption? Occasional [id number] Information not available 10/10/2022 Mental Status None recorded. Family History Relationship Description Onset Age of this Age Resolved Age Notes LastModified by Organization Details LastModified Time Unspecified Relation Diabetes mellitus [id number] Not available 10/10/2022 18:53:09 Unspecified Relation Family history of malignant neoplasm Not available 2022 09:22:59 Brother Diabetes mellitus [id number] Not available 10/10/2022 18:53:09 Brother Hypertensive disorder [id number] Not available 10/10/2022 18:53:09 Daughter Diabetes mellitus [id number] Not available 10/10/2022 18:53:09 Mother Family history of stroke Not available 2022 09:22:59 Mother Pulmonary embolism Not available 2022 09:22:59 Mother Hypertensive disorder [id number] Not available 10/10/2022 18:53:09 Father Hypertensive disorder [id number] Not available 10/10/2022 18:53:09 Sister Hypertensive disorder [id number] Not available 10/10/2022 18:53:09 Notes:mother - cancer Medical History Condition Response OBESITY Y HYPERTENSION Y HIGH CHOLESTEROL / HYPERLIPIDEMIA Y Gynecological HistoryNo gynecological history recorded. Obstetrics History GPAL:G 0 P 0 0 0 0 Past Encounters Encounter ID Performer Location Encounter Start Date Encounter Closed Date Diagnosis/Indication Diagnosis SNOMED-CT Code Diagnosis ICD10 Code Diagnosis Note [id number] Aguilar Tompkins DPM [facility] [address] [place] [phone] 05/31/2022 00:00:00 05/31/2022 15:43:41 [id number] AMANUEL Carlson IGRATION_ DEFAULT_1 _1 , 06/18/2022 00:00:00 06/28/2022 13:52:00 [id number] AMANUEL Carlson IGRATION_ DEFAULT_1 _1 , 06/25/2022 00:00:00 06/25/2022 16:13:00 [id number] Aguilar Tompkins DPM [facility] [place] [address] [place] [id number] 11/15/2022 09:22:34 11/21/2022 15:52:19 Onychomycosis of toenails 580942108 B35.1 resolveddc ketoconazo lefollow-u p as needed Tailor's b union of right foot 1095815493 888301 M21.621 educated on treatment optionsPat ient elects to continue with conservati ve therapyIf continues to be problemati c patient will return for follow-up x-rays is and review surgical procedures .Recommend wide shoe with soft toe box tied all shoes to prevent wounds to the area, if present seek medical attention immediatel yFollow-up as needed Health Concerns Section Related Observation LastModified by Organization Detai ls LastModified Time None Recorded Concern Status LastModified by Organization Details LastModified Time None Recorded Advance Directives Directive None Recorded Payers Encounter Date Sequence Insurance Name Policy Number Policy Edwards Covered Member ID Edwards Member ID Guarantor Name 11/15/2022 1 [place] Adina Solanokimberley [id number] Adina Nahum 11/15/2022 2 () Adina Solanokimberley [id number] Adina Solanokimberley Notes Date Note Type Note Provider Name and Address Organization Details Recorded Time 11/15/2022 text/html . Patient is a 67-year-old female who returns the office for follow-up on onychomycosis of the great toenails. Patient had the toenails avulsed and they are growing back normal in nature. Patient does have some minor cracking in the central aspect of the toenail which was debrided today. Patient overall is pleased with the toenail as it is growing back without any discoloration or thickness. Patient has applied ketoconazole to the area.. Patient states that she also has been having minor pain at the 5th metatarsal base right foot laterally. Patient states that she has not had any wounds to the area. Patient does state that with tight shoe gear and pressure she does have more pain. Patient denies any pain today she is wearing sandals. Patient denies any other pedal complaints. Aguilar Tompkins DPM [address] [facility] [facility] [address], [place], [address], [facility] [employer] [facility] 11/15/2022 09:51:22 OBGyn Episode No OBEpisode recorded.
--- OUTSIDE RECORDS SUMMARY | 2024-12-29 07:56 | XMS_ITS | CONTINUITY OF CARE DOCUMENT ---
Author Name abena kraft Address Unknown Organization [facility] Address [address] [place] [address] Phone [phone] Care Team Providers Care Html Developer Name Role Phone Lane MARQUEZ, Teri Unavailable [phone] ESTEVAN MARQUEZ, LISANDRO Unavailable [phone] INSURANCE PROVIDERS Payer name Policy type / Coverage type [place] red alliance party ID [facility] [id number] Other [id number]
--- OUTSIDE RECORDS SUMMARY | 2024-12-29 07:56 | XMS_ITS | Referral Summary ---
Author Organization [facility] [address] [place] [address] Care Team Providers Care Farm Truck Driver Name Role Phone Jolene Sewell Primary Care Provider + Encounters Date Type Department Care Team Description 12/21/2024 Telephone [facility] [address] [place] [phone] Letha Woodson LPN Refill Pantoprazole from Last 3 Months Allergies Active Allergy Reactions Criticality Noted Date Comments Sulfa Chest tightness Medium 04/02/2023 Medications spironolactone (ALDACTONE) 50 mg tablet Take 1 tablet (50 mg total) by mouth daily Active atorvastatin (LIPITOR) 40 mg tablet Take 1 tablet (40 mg total) by mouth daily Active levothyroxine (SYNTHROID) 50 mcg tablet Take 1 tablet (50 mcg total) by mouth cupola operator before breakfast Active olmesartan-hydr ochlorothiazide (BENICAR HCT) 40-25 mg per tablet Take 1 tablet by mouth daily [address] (PROTONIX) 20 mg EC tabletIndicatio ns:Laryngophary ngeal reflux (LPR) Take 1 tablet (20 mg total) by mouth daily 30 tablet 3 5 12/22/19 26 Active omeprazole (PriLOSEC) 20 mg capsule Take 1 capsule (20 mg total) by mouth daily 12/22/19 25 Discontinu ed(Alterna te therapy) omeprazole (PriLOSEC) 40 mg capsuleIndicati ons:Laryngophar yngeal reflux (LPR) Take 1 capsule (40 mg total) by mouth 2 (two) times a day before breakfast and dinner 60 capsule 3 4 12/22/19 25 Discontinu ed(Alterna te therapy) Active Problems Problem Noted Date Diagnosed Date Phlegm in throat 06/09/2024 Assessment & Plan (07/28/2024 8:54 PM ENGINEERING AND DEVELOPMENT DIRECTOR): She feels like her symptoms are probably 90% better. Therefore I think she can probably taper off of the twice a day dosage of her PPIs. I think I would continue with twice a day therapy for the next couple of weeks considering the holidays. After that she can go to once a day and then ultimately get down to her 20 mg once a day. She understands. She will pursue that. She will also follow up with me if she has any further problems. She had no questions. Assessment & Plan (06/11/2024 12:44 PM CDT): Is likely due to the reflux problem. I recommended that she avoid aggressively clearing her throat because that will make the phlegm sensation even worse and she also might damage her vocal cords. She understands. Laryngopharyngeal reflux (LPR) 04/06/2023 Assessment & Plan (06/09/2024 5:15 PM CDT): He would like to go back on the omeprazole 40 mg twice a day which I think is fine but I recommended only doing that temporarily. It is being prescribed twice a day. I would like to see her back in about 2 months to see how things are going. We would likely decrease her dosage at that time. She is agreeable with this. Assessment & Plan (06/04/2023 5:22 PM CDT): Her symptoms have improved. Therefore I think she can decrease her omeprazole to once a day again. I told her the symptoms can come and go and she can adjust her medication accordingly. She understands. Assessment & Plan (04/06/2023 1:21 PM CDT): We discussed laryngopharyngeal reflux disease. It could be causing these symptoms. It can be improved through dietary management and we talked about various dietary changes to consider. Also discussed aggressive treatment through twice a day proton pump inhibitors. I also provided some literature regarding this type of reflux and this included instructions on dietary management. We also discussed the potential long-term side effects of proton pump inhibitors including liver and kidney disease and increased risk of dementia. I do not intend to continue treatment with this medication indefinitely unless there was no other way to get the symptoms under control and the patient wishes to continue taking them. We decided to increase her current dose of omeprazole to 40 mg twice a day. I plan on seeing her back in about 8 weeks to see how she is doing. Chronic laryngitis 04/06/2023 Assessment & Plan (06/04/2023 5:23 PM CDT): This has improved. Therefore I think she can probably decrease the PPIs to once a day. No need for further intervention. Assessment & Plan (04/06/2023 1:22 PM CDT): I reassured her that I do not find anything worrisome on her fiberoptic exam. She has some evidence of reflux but no significant lesions were noted. I suspect her symptoms are due to reflux disease and we talked about that. Social History Tobacco Use Types Packs/Day Years Used Date Smoking Tobacco: Never Smokeless Tobacco: Never Tobacco Cessation:Counseling Given: Not Answered Comments Unknown Sex and Gender Information Value Date Recorded Sex Assigned at Not on file Legal Sex Female 6:23 PM ENGINEERING AND DEVELOPMENT DIRECTOR Gender Identity Not on file Sexual Orientation Not on file Last Filed Vital Signs Vital Sign Reading Time Taken Comments Blood Pressure - - Pulse - - Temperature - - Respiratory Rate 18 07/28/2024 3:45 PM ENGINEERING AND DEVELOPMENT DIRECTOR Oxygen Saturation - - Inhaled Oxygen Concentration - - Weight 99.8 kg (220 lb) 07/28/2024 3:45 PM ENGINEERING AND DEVELOPMENT DIRECTOR Height 165.1 cm (5' 5 ) 07/28/2024 3:45 PM ENGINEERING AND DEVELOPMENT DIRECTOR Body Mass Index 36.61 07/28/2024 3:45 PM ENGINEERING AND DEVELOPMENT DIRECTOR Plan of Treatment Not on file Insurance MEDICARE [facility] [place] [address] [address] [id number] Care Teams Farm Truck Driver Relationship Specialty Start Date End Date Jolene Sewell PA [facility] [place] [address] PCP - General Nurse Practitioner 03/15/23
--- OUTSIDE RECORDS SUMMARY | 2024-12-29 07:56 | XMS_ITS | Continuity of Care Document ---
Author Organization [employer] Address [address] [place] [address] Phone Care Team Providers Care Foreign Languages Professor Name Role Phone Jim Rodríguez MD Unavailable Unavailable Allergies, Adverse Reactions, Alerts Substance Reaction Status Criticality Sulfa (Sulfonamide Antibiotics) chest pain Active No Information Medications Medication Instructions Dosage Effective Dates (start - stop) Status Comments levocetirizine 5 mg tablet take 1 tablet by oral route every day in the evening 5 MG - Active spironolactone 50 mg tablet take 1 tablet by oral route every day 50 MG - Active amlodipine 5 mg tablet take 1 tablet by oral route every day 5 MG - Active atorvastatin 20 mg tablet take 1 tablet by oral route every day 20 MG - Active valsartan 320 mg-hydrochlorothiazide 25 mg tablet take 1 tablet by oral route every day 1.00 tablet - Active Fish Oil 1,000 mg capsule - Active Advance Directives Directive Yes / No Effective Date File Name No Information Encounters Encounter Description Practice Location Reason(s) For Visit Diagnoses Date Provider Providers Copied on Encounter [email or web address], [address], [place], [place], [id number] , tel: [phone] [facility] No Information 4 Marcos Fernandez. [address], [id number] , . tel: [phone] [email or web address], [address], [place], [place], [id number] , tel: [phone] [facility] Allergic urticaria 4 Marcos Fernandez. [address] [facility] [address], [place], [place], [id number] , [place]. tel: [phone] [facility], [address], [place], [place], [address] , [place] tel: [phone] [facility] Chronic rhinitisAllergic urticaria 4 Marcos Fernandez. [address] [address], [place], [place], [id number] , [place]. tel: [phone] Referring Provider: Khai Mcmanus, [facility], [place], [address]. tel:[phone] Family History Family Member Type Diagnosis Age At Onset Mother Problem (finding) Systemic lupus erythema tosus Payers Payer name Insurance type Covered republican ID Authorbakari ugalde(s) [employer] [id number] CI [id number] Social History Type Description Quantity Date Captured Comments Sex Female Smoking Status No Information Chief Complaint And Reason For Visit No Information Reason For Referral Reason For Referral No Information History Of Present Illness Encounter Date Complaint History Of Prese nt Illness No Information Functional Status Date Functional Assessmen t No Information Instructions Date Instruction Additional Infor mation No Information Assessments Type Assessment Date No Information Patient Care Teams Name Effective Dates (start - stop) Status Members No Information
--- OUTSIDE RECORDS SUMMARY | 2024-12-29 07:56 | XMS_ITS | Clinical Summary ---
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 Encounters Date Type Department Care Team Description 12/21/2024 Telephone [facility] Otolaryngology [address] [place] [id number] Letha Woodson LPN Refill Pantoprazole from Last 3 Months Medical History Medical History Date Comments Thyroid nodule Laryngopharyngeal reflux (LPR) Family History Medical History Relation Name Comments Diabetes Brother Hypertension Father Autoimmune disease Mother Hypertension Mother Relation Name Status Comments Brother Father Mother Social History Tobacco Use Types Packs/Day Years Used Date Smoking Tobacco: Never Smokeless Tobacco: Never Tobacco Cessation:Counseling Given: Not Answered Comments Unknown Sex and Gender Information Value Date Recorded Sex Assigned at Not on file Legal Sex Female 6:23 PM WOOD TYPE CUTTER Gender Identity Not on file Sexual Orientation Not on file Obstetrics History Last Filed Vital Signs Vital Sign Reading Time Taken Comments Blood Pressure - - Pulse - - Temperature - - Respiratory Rate 18 07/28/2024 3:45 PM WOOD TYPE C[employer]TER Oxygen Saturation - - Inhaled Oxygen Concentration - - Weight 99.8 kg (220 lb) 07/28/2024 3:45 PM WOOD TYPE CUTTER Height 165.1 cm (5' 5 ) 07/28/2024 3:45 PM WOOD TYPE CUTTER Body Mass Index 36.61 07/28/2024 3:45 PM WOOD TYPE CUTTER Plan of Treatment Health Maintenance Due Date Last Done Comments Breast Cancer Screening-Mammogram 1955 Colon Cancer Screening-Colonoscopy 1955 Depression Screening 1955 Fall Risk Assessment 1955 Hepatitis C Screening 1955 Osteoporosis Screening-Bone Density Scan 1955 Hepatitis B Screening 1974 Well Visit 65+ 2021 Covid-19 Vaccine (5 - 2023-2 5 season) 2024 06/02/2022, 02/24/2022, 08/25/2021, Additional history exists Influenza Vaccine (Season Ended) 2025 05/19/2022, 06/08/2021, 05/05/2020, Additional history exists DTaP/Tdap/Td Vaccine (2 - Td or Tdap) 05/03/2032 05/03/2022 Zoster Vaccine Completed 11/23/2018, 04/17/2018 Pneumococcal vaccine 65+ Completed 05/03/2022 Insurance MEDIC[place] [address] Care Teams Bite Block Maker Relationship Specialty Start Date End Date Jolene Sewell PA [address] [place] [id number] PCP - General Nurse Practitioner 03/15/23
== END 2024-12-29 07:52 | disposition home or self-care (01) ==
LOC: ANHIMG 07:53
PROVIDERS: PCP Registered Nurse; Visit Provider Registered Nurse
DX: Z78.0 Asymptomatic menopausal state (principal)
CPT/HCPCS: 77080